=== PATIENT | male | born 1975 | race Caucasian/White ===

== ENCOUNTER 2018-04-22 10:06 | Emergency (ER) | payer OTHER, MEDICAID, SELFPAY ==
[2018-04-22 10:14] VITALS: BP 134/68; PULSE 78; RESP 18; TEMP 37.2; O2SAT 96; BMI 38.6
--- NOTE | 2018-04-22 10:23 | DI.RAD.S_ITS ---
PROCEDURE: XR CHEST 1V INDICATIONS: chest pain TECHNIQUE: One view of the chest was acquired. COMPARISON: [facility], , CHEST 1 VIEW, 09/14/2017, 10:48. FINDINGS: Surgical changes and devices: None. Lungs and pleura: No pleural effusions or pneumothorax. Mild increased pulmonary vascularity. Mediastinum: Mediastinal contours appear normal. Heart size is mildly enlarged. Bones and chest wall: No suspicious bony lesions. Overlying soft tissues appear unremarkable. IMPRESSION: Cardiomegaly with increased vascularity suggestive of edema. Dictated by: Mey Peralta M.D. on 04/22/2018 at 9:50 Approved by: Mey Peralta M.D. on 04/22/2018 at 9:51
--- NOTE | 2018-04-22 10:26 | PC.NURSE ---
pt c/o chest pain started yesterday morning when he woke up. progressively got worse throughout the day. today increased weakness, and still having chest pain. has history of mi in 2006, also has HTN.
[2018-04-22 10:30] LABS: Add Manual Diff / Slide Review NO; Basophils Percent Auto 0.3 % (0-2); Eosinophils Percent Auto 2.9 % (2-4); Hematocrit 40.6 % (41-53); Hemoglobin 14.2 g/dL (13.5-17.5); Lymphocytes Percent Auto 11.8 % (25-40); Mean Corpuscular Hemoglobin 29.8 PG (26-34); Monocytes Percent Auto 5.9 % (3-14); Neutrophils Absolute Auto 8400 /uL (3000-5900); Neutrophils Percent Auto 79.1 % (50-75); Platelet Count 153 X10^3/uL (150-400); Red Blood Cell Count 4.78 X10^6/uL (4.5-5.9); Red Cell Distribution Width 13.4 % (11.6-14.8); White Blood Cell Count 10.6 X10^3/uL (4.5-11.0)
[2018-04-22 10:35] LABS: INR 1.1 (0.9-1.3); Prothrombin Time 12.3 SECONDS (10.1-12.7)
--- NOTE | 2018-04-22 10:36 | ED_ITS ---
HPI - Chest Pain General Chief Complaint: Chest Pain Stated Complaint: sleep apnea/chest pain Time Seen by Provider: 04/22/18 10:18 Source: patient Mode of arrival: ambulatory Limitations: no limitations History of Present Illness HPI narrative: Patient is a 43-year-old male who presents with chest pain. He is been having some nasal congestion and sinus problems for about 1-2 months. His primary finally put him on some antibiotics but he still feels quite congested. He is unable to wear his nasal CPAP at night because he is so congested. This morning he woke up use quite short of breath he has been fatigued and he had some chest pain. It has gotten better since he has been awake. He still says it is about L1 but overall improving. It is nonradiating does not get any better or worse with exertion. He has history of CAD and [place] MD complaint: chest pain Related Data Home Medications Medication Instructions Recorded Confirmed metoprolol tartrate 50 mg PO BID #0 03/21/17 04/22/18 aspirin 325 mg PO DAILY 04/22/18 04/22/18 Allergies Allergy/AdvReac Type Severity Reaction Status Date / Time Sulfa (Sulfonamide Allergy Intermediate RESPIRATORY Verified 04/22/18 10:13 Antibiotics) PROBLEMS Review of Systems Review of Systems GENERAL: Denies chills, fatigue, malaise, fever, sweats, travel HEENT: See HPI RESPIRATORY: + shortness of breath Denies dyspnea, cough, wheezing, hemoptysis, sputum. CARDIOVASCULAR: See HPI GASTROINTESTINAL: Denies nausea, vomiting, abdominal pain, diarrhea, constipation, melena. : Denies dysuria, frequency, incontinence, hematuria, urinary retention, flank pain. MUSCULOSKELETAL: Denies weakness, joint pain, or bony pain SKIN: No rash, no erythema, no pruritus NEUROLOGIC: Denies weakness, dizziness, headache, numbness, change in speech, confusion PSYCHIATRIC: No concerning psychosocial issues. 12 point review of systems is negative except for those stated above and HPI PFSH Medical History Coronary artery disease (Acute) Hypertension (Acute) Kidney stones (Acute) Obstructive sleep apnea (Acute) Exam Initial Vital Signs Initial Vital Signs: Vital Signs Temperature 98.9 F 04/22/18 10:14 Pulse Rate 78 04/22/18 10:14 Respiratory Rate 18 04/22/18 10:14 Blood Pressure 134/68 04/22/18 10:14 Pulse Oximetry 96 04/22/18 10:14 GENERAL: Well-appearing, well-nourished and in no acute distress. HEENT: Head atraumatic,EOMI, pupils reactive, face symmetric, CARDIOVASCULAR: Regular rate and rhythm without murmurs, rubs or gallops. RESPIRATORY: Breath sounds equal bilaterally, no wheezes rales or rhonchi. ABDOMEN: Soft, nontender. Normoactive bowel sounds all 4 quadrants. No guarding or rebound. EXTREMITIES: Normal range of motion, no clubbing or edema. Neurovascularly intact NEUROLOGICAL: Alert and oriented x4.Normal gait and speech. Cranial nerves II through XII grossly intact. SKIN: Warm, dry, no laceration, no petechiae, no rashes or lesions. Course Orders Ordered: ED Orders 04/22/18 10:20 Complete Blood Count AUTO DIFF Stat Comprehensive Metabolic Panel Stat Lipase Stat Partial Thromboplastin Time Stat Prothrombin Time INR Stat Troponin & CK Cardiac Panel Stat 04/22/18 10:23 XR chest 1V Stat EKG-12 Lead Stat 04/22/18 12:12 Troponin I Stat Vital Signs - 8 hr 04/22/18 10:14 04/22/18 11:00 04/22/18 11:30 Temperature 98.9 F Pulse Rate 78 72 67 Respiratory Rate 18 18 13 Blood Pressure 134/68 Blood Pressure [Left Arm] 119/80 130/78 Pulse Oximetry 96 96 97 04/22/18 12:00 04/22/18 12:30 04/22/18 13:19 Temperature Pulse Rate 78 62 64 Respiratory Rate 19 14 16 Blood Pressure 131/73 Blood Pressure [Left Arm] 131/73 117/58 L Pulse Oximetry 96 97 96 MDM - Chest Pain Lab Data Attestation: I reviewed the patient's lab results. Result diagrams: 04/22/18 10:20 04/22/18 10:20 Lab Results 04/22/18 04/22/18 04/22/18 Range/Units 10:20 10:20 10:20 WBC 10.6 (4.5-11.0) X10^3/uL RBC 4.78 (4.5-5.9) X10^6/uL Hgb 14.2 (13.5-17.5) g/dL Hct 40.6 L (41-53) % MCV 85.0 (80-100) fL MCH 29.8 (26-34) PG MCHC 35.0 (30-36) % RDW 13.4 (11.6-14.8) % Plt Count 153 (150-400) X10^3/uL Neut % (Auto) 79.1 H (50-75) % Lymph % (Auto) 11.8 L (25-40) % Parker % (Auto) 5.9 (3-14) % Eos % (Auto) 2.9 (2-4) % Baso % (Auto) 0.3 (0-2) % Neut # (Auto) 8400 H (7121-6676) /uL PT 12.3 (10.1-12.7) SECONDS INR 1.1 (0.9-1.3) APTT 30 (26.4-36.2) SECONDS Sodium 140 (137-145) mmol/L Potassium 4.3 (3.4-5.1) mmol/L Chloride 103 (98-107) mmol/L Carbon Dioxide 28 (22-32) mmol/L BUN 19 (9-20) mg/dL Creatinine 0.80 (0.66-1.25) mg/dL Estimated GFR > 60.0 (>60) mL/min BUN/Creatinine Ratio 23.8 H (6-22) Glucose 141 H (70-100) mg/dL Calcium 9.2 (8.4-10.2) mg/dL Total Bilirubin 0.8 (0.2-1.3) mg/dL AST 25 (17-59) IU/L ALT 30 (21-72) IU/L Alkaline Phosphatase 63 (38-126) U/L Total Creatine Kinase 85 (55-170) U/L Troponin I < 0.012 (0.01-0.034) ng/mL Total Protein 7.1 (6.3-8.2) g/dL Albumin 4.3 (3.5-5.0) g/dL Globulin 2.8 (1.7-4.1) g/dL Albumin/Globulin Ratio 1.5 (1.0-2.8) Lipase 335 H (23-300) U/L 04/22/18 Range/Units 12:12 WBC (4.5-11.0) X10^3/uL RBC (4.5-5.9) X10^6/uL Hgb (13.5-17.5) g/dL Hct (41-53) % MCV (80-100) fL MCH (26-34) PG MCHC (30-36) % RDW (11.6-14.8) % Plt Count (150-400) X10^3/uL Neut % (Auto) (50-75) % Lymph % (Auto) (25-40) % Parker % (Auto) (3-14) % Eos % (Auto) (2-4) % Baso % (Auto) (0-2) % Neut # (Auto) (8433-5107) /uL PT (10.1-12.7) SECONDS INR (0.9-1.3) APTT (26.4-36.2) SECONDS Sodium (137-145) mmol/L Potassium (3.4-5.1) mmol/L Chloride (98-107) mmol/L Carbon Dioxide (22-32) mmol/L BUN (9-20) mg/dL Creatinine (0.66-1.25) mg/dL Estimated GFR (>60) mL/min BUN/Creatinine Ratio (6-22) Glucose (70-100) mg/dL Calcium (8.4-10.2) mg/dL Total Bilirubin (0.2-1.3) mg/dL AST (17-59) IU/L ALT (21-72) IU/L Alkaline Phosphatase (38-126) U/L Total Creatine Kinase (55-170) U/L Troponin I < 0.012 (0.01-0.034) ng/mL Total Protein (6.3-8.2) g/dL Albumin (3.5-5.0) g/dL Globulin (1.7-4.1) g/dL Albumin/Globulin Ratio (1.0-2.8) Lipase (23-300) U/L Imaging Data Chest x-ray: Attestation: I personally reviewed and interpreted this imaging study as follows: Radiologist's impression: PROCEDURE: XR CHEST 1V INDICATIONS: chest pain TECHNIQUE: One view of the chest was acquired. COMPARISON: [facility], CHEST 1 VIEW, 09/14/2017, 10:48. FINDINGS: Surgical changes and devices: None. Lungs and pleura: No pleural effusions or pneumothorax. Mild increased pulmonary vascularity. Mediastinum: Mediastinal contours appear normal. Heart size is mildly enlarged. Bones and chest wall: No suspicious bony lesions. Overlying soft tissues appear unremarkable. IMPRESSION: Cardiomegaly with increased vascularity suggestive of edema. Dictated by: Mey Peralta M.D. on 04/22/2018 at 9:50 ECG Data Attestation: I personally reviewed and interpreted this ECG as follows: Prior ECG tracings: available for review Interpretation: Normal sinus rhythm rate [address] changes similar to previous EKG no T-wave inversion MDM Narrative Medical decision making narrative: Patient has 2-troponins. He does have a history of coronary artery disease however I feel like this is a combination of his current sinus infection and not wearing his CPAP. EKG is similar to prior he remains chest pain-free in the ED for the last 3 hr. Recommend he follow up with his primary care physician. Discharge Plan Departure Patient Disposition: Home Clinical Impression: Atypical chest pain Discharge Date/Time: 04/22/18 13:24 Interventions: ED Discharge Assessment Last Done: 04/22/18 13:19 Instructions: DI for Atypical Chest Pain Activity Restrictions/Additional Instructions: *You have been diagnosed with atypical chest pain *What to do: Wear CPAP, rest *Continue to take medications as directed *Follow up with your primary care provider in 2-3 days *Return to ER if you should have new or worsening chest pain, shortness of breath or any new, worsening or concerning symptoms Prescriptions: No Action metoprolol tartrate 50 MG tablet 50 mg PO BID Qty: 0 RF: 0 aspirin 325 mg Tablet 325 mg PO DAILY RF: 0 Stand Alone Forms: Work/School Restrictions
[2018-04-22 10:38] LABS: PTT Partial Thromboplastin Tim 30 SECONDS (26.4-36.2)
[2018-04-22 10:40] LABS: Alanine Aminotransferase 30 IU/L (21-72); Albumin 4.3 g/dL (3.5-5.0); Albumin Globulin Ratio 1.5 (1.0-2.8); Alkaline Phosphatase 63 U/L (38-126); Aspartate Aminotransferase 25 IU/L (17-59); BUN Creatinine Ratio 23.8 (6-22); Bilirubin Total 0.8 mg/dL (0.2-1.3); Blood Urea Nitrogen 19 mg/dL (9-20); Calcium 9.2 mg/dL (8.4-10.2); Carbon Dioxide 28 mmol/L (22-32); Chloride 103 mmol/L (98-107); Creatine Kinase 85 U/L (55-170); Estimated Glomerular Filt Rate > 60.0 mL/min (>60); Globulin 2.8 g/dL (1.7-4.1); Glucose 141 mg/dL (70-100); HEMOLYSIS < 15 (0-50); Lipase 335 U/L (23-300); Potassium 4.3 mmol/L (3.4-5.1); Sodium 140 mmol/L (137-145); Total Protein 7.1 g/dL (6.3-8.2)
[2018-04-22 10:54] LABS: Troponin I < 0.012 ng/mL (0.01-0.034)
[2018-04-22 11:00] VITALS: BP 119/80; PULSE 72; RESP 18; O2SAT 96
[2018-04-22 11:30] VITALS: BP 130/78; PULSE 67; RESP 13; O2SAT 97
[2018-04-22 12:00] VITALS: BP 131/73; PULSE 78; RESP 19; O2SAT 96
[2018-04-22 12:30] VITALS: BP 117/58; PULSE 62; RESP 14; O2SAT 97
[2018-04-22 12:52] LABS: Troponin I < 0.012 ng/mL (0.01-0.034)
[2018-04-22 13:19] VITALS: BP 131/73; PULSE 64; RESP 16; O2SAT 96
== END 2018-04-22 13:24 | disposition home or self-care (01) ==
PROVIDERS: Emergency Provider Emergency Medicine
DX: R07.89 Other chest pain (principal)
CPT/HCPCS: 36415; 36591; 71045; 80053; 82550; 82553; 83690; 84484; 85025; 85610; 85730; 93005; 99283; 99285

== ENCOUNTER → 2018-06-24 10:16 | Outpatient (CLI) | payer OTHER, SELFPAY ==
--- NOTE | 2018-06-24 | DI.CT.S_ITS ---
PROCEDURE: CT SINUS SCREEN WO CON INDICATIONS: CHRONIC SINUSITIS TECHNIQUE: Noncontrast 3.0 mm axial images acquired from the frontal sinuses to the mid-sella, with coronal and sagittal reformats. For radiation dose reduction, the following was used: automated exposure control, adjustment of mA and/or kV according to patient size. COMPARISON: None. FINDINGS: Image quality: Excellent. Sinuses: Prominent left maxillary sinus mucous retention cyst versus polyp is present. There is minimal bilateral maxillary as well as scattered ethmoid and frontal sinus mucosal thickening. 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 Ostiomeatal Complexes: Ostiomeatal complexes are patent. There is minimal narrowing on the left secondary mucosal thickening. No Elliot cells. Miscellaneous: Visualized intra-orbital contents are normal. No chyna bullosa or paradoxical turbinate curvature. No nasal septal deviation. IMPRESSION: 1. Prominent retention cyst versus polyp is present in the left maxillary sinus. Otherwise, minimal scattered mucosal thickening. 2. Minimal narrowing of the left ostiomeatal complex as above. Dictated by: Mey Peralta M.D. on 06/24/2018 at 10:57 Approved by: Mey Peralta M.D. on 06/24/2018 at 11:06
== END ==
PROVIDERS: PCP Family Medicine; Visit Provider Otolaryngology
DX: J32.8 Other chronic sinusitis (principal)
CPT/HCPCS: 70486

== ENCOUNTER 2018-10-02 20:37 | Emergency (ER) | payer OTHER, MEDICAID, SELFPAY ==
[2018-10-02 20:45] VITALS: BP 140/80; PULSE 78; RESP 16; TEMP 36.9; O2SAT 96; BMI 42.4
--- NOTE | 2018-10-02 20:50 | ED.EAR ---
HPI - Ear Problem <MAYRA Kaur - Last Filed: 10/02/18 21:30> General Chief complaint: Ear Stated complaint: states infection of ears with discharge Time Seen by Provider: 10/02/18 20:39 Source: patient Mode of arrival: ambulatory Limitations: no limitations History of Present Illness HPI Narrative: 43-year-old male with history of hypertension and is a nonsmoker here for complaint of pain into his left ear. He reports that he has had hit a tympanic tube placed to his left ear within the last week to 2 to help relieve pressure. He has had pain into his left sinus area over the past 6 months after he had gotten hit there by a piece of metal 6 months ago. The tympanic tube was placed in there to help relieve some of his symptoms. He reports he has had increased pain into his left ear over the past few days and he has had drainage and bleeding from that ear as well. He was prescribed some antibiotic drops that the patient does not know the names to use he states that he has a hard time getting the drops to get past the tube and is very painful when he uses the drops any feels that the eustachian tube any feels that the tympanic tube is clogged. he denies any fevers a however he has had chills over the past couple of days. Positive p.o. intake per no nausea vomiting. MD Complaint: ear pain Related Data Home Medications Medication Instructions Recorded Confirmed metoprolol tartrate 50 mg PO BID #0 03/21/17 04/22/18 aspirin 325 mg PO DAILY 04/22/18 04/22/18 nitroglycerin 0.4 mg sublingual 0.4 mg SL Q5-15M PRN 05/23/18 05/23/18 tablet sildenafil (antihypertensive) PO 05/23/18 05/23/18 Previous Rx's Medication Instructions Recorded amoxicillin-pot clavulanate 1 tab PO BID #13 tab 10/02/18 hydrocodone-acetaminophen [Romney] 1 tab PO Q6H PRN #6 tab 10/02/18 prednisone 40 mg PO BID #6 tab 10/02/18 Allergies Allergy/AdvReac Type Severity Reaction Status Date / Time Sulfa (Sulfonamide Allergy Intermediate RESPIRATORY Verified 05/23/18 12:14 Antibiotics) PROBLEMS Review of Systems <MAYRA Kaur - Last Filed: 10/02/18 21:30> Constitutional Reports chills, Denies fever(s), Denies lethargy and Denies weakness Eyes Denies change in vision, Denies eye discharge, Denies irritation and Denies loss of vision ENT Comments: Left ear pain and drainage Cardiovascular Denies chest pain, Denies irregular heart rhythm, Denies lightheadedness, Denies palpitations, Denies dyspnea, Denies dyspnea on exertion and Denies orthopnea Respiratory Denies cough, Denies dyspnea, Denies dyspnea on exertion and Denies wheezing Musculoskeletal Denies back pain, Denies muscle weakness, Denies numbness and Denies tingling Neurologic Denies loss of vision, Denies numbness, Denies tingling and Denies weakness Endocrine Denies palpitations Allergic/Immunologic Denies wheezing PFSH <MAYRA Kaur - Last Filed: 10/02/18 21:30> Medical History Coronary artery disease (Acute) Hypertension (Acute) Kidney stones (Acute) Obstructive sleep apnea (Acute) Social History Smoking Status: Never smoker alcohol intake: current (occasionally) Social History Smoking Status: Never smoker alcohol intake: current (occasionally) Exam <MAYRA Kaur - Last Filed: 10/02/18 21:30> Initial Vital Signs Initial Vital Signs: Vital Signs Temperature 98.5 F 10/02/18 20:45 Pulse Rate 78 10/02/18 20:45 Respiratory Rate 16 10/02/18 20:45 Blood Pressure 140/80 10/02/18 20:45 Pulse Oximetry 96 10/02/18 20:45 Const General: cooperative and well developed Nutritional Appearance: well nourished Orientation: alert, awake, oriented x3 and not confused HENPR Head: atraumatic Ears: external ears normal, TM normal on the right, left TM abnormal ( left TM opaque and darkened. tympanic tube is in place) and other Face and sinus: no sinus tenderness Mouth: oral mucosae normal and moist mucous membranes Throat: posterior oropharynx normal Eyes Conjunctivae: conjunctivae normal Sclera: sclerae normal Pupils: PERRL EOM: EOM intact bilaterally Chest Chest: normal inspection of the chest Resp Effort & Inspection: normal respiratory effort, able to speak in complete sentences, no respiratory distress and no use of accessory muscles Auscultation: clear to auscultation bilaterally, no rales, no rhonchi and no wheezes Cardio Rate: regular rate Rhythm: regular rhythm Heart Sounds: no click, no gallops, no murmurs and no rubs Skin General: no rashes or lesions noted, No jaundice and No petechiae Neuro General: alert, oriented x3, gait normal and no focal motor deficits Speech: speech normal <Zander Chou DO - Last Filed: 10/02/18 22:01> Initial Vital Signs Initial Vital Signs: Vital Signs Temperature 98.5 F 10/02/18 20:45 Pulse Rate 78 10/02/18 20:45 Respiratory Rate 16 10/02/18 20:45 Blood Pressure 140/80 10/02/18 20:45 Pulse Oximetry 96 10/02/18 20:45 Course <MAYRA Kaur - Last Filed: 10/02/18 21:30> Orders Ordered: Discontinued Medications Amoxicillin/Clavulanate Potassium (Augmentin 875-125 Mg) 1 tab PO NOW ONE Stop: 10/02/18 21:15 Last Admin: 10/02/18 21:23 Dose: 1 tab Ketorolac Tromethamine (Toradol) 60 mg IM NOW ONE Stop: 10/02/18 21:15 Last Admin: 10/02/18 21:23 Dose: 60 mg Prednisone (Deltasone) 40 mg PO NOW ONE Stop: 10/02/18 21:15 Last Admin: 10/02/18 21:23 Dose: 40 mg Vital Signs - 8 hr 10/02/18 20:45 Temperature 98.5 F Pulse Rate 78 Respiratory Rate 16 Blood Pressure 140/80 Pulse Oximetry 96 <Zander Chou DO - Last Filed: 10/02/18 22:01> Orders Ordered: Discontinued Medications Amoxicillin/Clavulanate Potassium (Augmentin 875-125 Mg) 1 tab PO NOW ONE Stop: 10/02/18 21:15 Last Admin: 10/02/18 21:23 Dose: 1 tab Ketorolac Tromethamine (Toradol) 60 mg IM NOW ONE Stop: 10/02/18 21:15 Last Admin: 10/02/18 21:23 Dose: 60 mg Prednisone (Deltasone) 40 mg PO NOW ONE Stop: 10/02/18 21:15 Last Admin: 10/02/18 21:23 Dose: 40 mg Vital Signs - 8 hr 10/02/18 20:45 Temperature 98.5 F Pulse Rate 78 Respiratory Rate 16 Blood Pressure 140/80 Pulse Oximetry 96 Medical Decision Making <Jonas SantosMAYRA - Last Filed: 10/02/18 21:30> MDM Narrative Medical decision making narrative: left tympanic membrane appears dark and an opaque with tympanic tube in place although partially dislodged. Small amount of blood is seen into the tympanic membrane area suspect infection and pressure to the inner ear. Discussed case with Dr. Martínez ENT who recommends antibiotics and steroids with follow-up tomorrow with ENT office. He was given Augmentin in the emergency room with prescription to fill tomorrow for subsequent dosing. He was also given prednisone 40 and also prescription for subsequent doses for total of 4 days of steroids. He will call ENT office tomorrow morning to schedule follow-up appointment for re-evaluation. [id number] ibuprofen as needed for any discomfort. small amount of Romney is prescribed for breakthrough pain. No driving while on the Romney. Return emergency room for any worsening symptoms. Discharge Plan Departure Patient Disposition: Home Clinical Impression: Left acute otitis media Discharge Date/Time: 10/02/18 21:34 Interventions: ED Discharge Assessment Last Done: 10/02/18 21:34 Instructions: Middle Ear Infection Activity Restrictions/Additional Instructions: signs and symptoms presents as infection to the middle ear. You are placed on an antibiotic called Augmentin use as directed. First dose was given in the emergency room this evening. Prednisone is also prescribed which is an anti-inflammatory to for anti inflammatory affects use as directed use [id number] ibuprofen as needed for any discomfort. Small amount of Romney is provided for breakthrough pain. Call ENT office tomorrow at number provided to schedule follow-up appointment tomorrow for re-evaluation. For any worsening symptoms return to the emergency room. Prescriptions: New hydrocodone-acetaminophen [Romney] 5-325 mg tablet 1 tab PO Q6H PRN (Reason: pain) Qty: 6 RF: 0 prednisone 20 mg tablet 40 mg PO BID Qty: 6 RF: 0 amoxicillin-pot clavulanate 875-125 mg tablet 1 tab PO BID Qty: 13 RF: 0 No Action sildenafil (antihypertensive) PO RF: 0 nitroglycerin 0.4 mg tablet, sublingual 0.4 mg SL Q5-15M PRNRF: 0 metoprolol tartrate 50 MG tablet 50 mg PO BID Qty: 0 RF: 0 aspirin 325 mg Tablet 325 mg PO DAILY RF: 0 Referrals: Mike Valencia MD [Physician] - <Zander Chou DO - Last Filed: 10/02/18 22:01> Cosign ED Attending Romy Attestation: I was immediately available in the department for consultation. Documentation has been reviewed. I agree with assessment and plan.
[2018-10-02] MEDS: AMOXICILLIN/CLAV 875/125 MG 1 TAB PO (21:23)
[2018-10-02] MEDS: predniSONE 20 MG TABLET 40 MG PO (21:23)
[2018-10-02] MEDS: KETOROLAC 60 MG/2 ML VIAL IM (21:23)
--- NOTE | 2018-10-02 21:24 | ED_ITS ---
HPI - Ear Problem <MAYRA Kaur - Last Filed: 10/02/18 21:30> General Chief complaint: Ear Stated complaint: states infection of ears with discharge Time Seen by Provider: 10/02/18 20:39 Source: patient Mode of arrival: ambulatory Limitations: no limitations History of Present Illness HPI Narrative: 43-year-old male with history of hypertension and is a nonsmoker here for complaint of pain into his left ear. He reports that he has had hit a tympanic tube placed to his left ear within the last week to 2 to help relieve pressure. He has had pain into his left sinus area over the past 6 months after he had gotten hit there by a piece of metal 6 months ago. The tympanic tube was placed in there to help relieve some of his symptoms. He reports he has had increased pain into his left ear over the past few days and he has had drainage and bleeding from that ear as well. He was prescribed some antibiotic drops that the patient does not know the names to use he states that he has a hard time getting the drops to get past the tube and is very painful when he uses the drops any feels that the eustachian tube any feels that the tympanic tube is clogged. he denies any fevers a however he has had chills over the past couple of days. Positive p.o. intake per no nausea vomiting. MD Complaint: ear pain Related Data Home Medications Medication Instructions Recorded Confirmed metoprolol tartrate 50 mg PO BID #0 03/21/17 04/22/18 aspirin 325 mg PO DAILY 04/22/18 04/22/18 nitroglycerin 0.4 mg sublingual 0.4 mg SL Q5-15M PRN 05/23/18 05/23/18 tablet sildenafil (antihypertensive) PO 05/23/18 05/23/18 Previous Rx's Medication Instructions Recorded amoxicillin-pot clavulanate 1 tab PO BID #13 tab 10/02/18 hydrocodone-acetaminophen [[place]] 1 tab PO Q6H PRN #6 tab 10/02/18 prednisone 40 mg PO BID #6 tab 10/02/18 Allergies Allergy/AdvReac Type Severity Reaction Status Date / Time Sulfa (Sulfonamide Allergy Intermediate RESPIRATORY Verified 05/23/18 12:14 Antibiotics) PROBLEMS Review of Systems <MAYRA Kaur - Last Filed: 10/02/18 21:30> Constitutional Reports chills, Denies fever(s), Denies lethargy and Denies weakness Eyes Denies change in vision, Denies eye discharge, Denies irritation and Denies loss of vision ENT Comments: Left ear pain and drainage Cardiovascular Denies chest pain, Denies irregular heart rhythm, Denies lightheadedness, Denies palpitations, Denies dyspnea, Denies dyspnea on exertion and Denies orthopnea Respiratory Denies cough, Denies dyspnea, Denies dyspnea on exertion and Denies wheezing Musculoskeletal Denies back pain, Denies muscle weakness, Denies numbness and Denies tingling Neurologic Denies loss of vision, Denies numbness, Denies tingling and Denies weakness Endocrine Denies palpitations Allergic/Immunologic Denies wheezing PFSH <MAYRA Kaur - Last Filed: 10/02/18 21:30> Medical History Coronary artery disease (Acute) Hypertension (Acute) Kidney stones (Acute) Obstructive sleep apnea (Acute) Social History Smoking Status: Never smoker alcohol intake: current (occasionally) Social History Smoking Status: Never smoker alcohol intake: current (occasionally) Exam <MAYRA Kaur - Last Filed: 10/02/18 21:30> Initial Vital Signs Initial Vital Signs: Vital Signs Temperature 98.5 F 10/02/18 20:45 Pulse Rate 78 10/02/18 20:45 Respiratory Rate 16 10/02/18 20:45 Blood Pressure 140/80 10/02/18 20:45 Pulse Oximetry 96 10/02/18 20:45 Const General: cooperative and well developed Nutritional Appearance: well nourished Orientation: alert, awake, oriented x3 and not confused HENUT Head: atraumatic Ears: external ears normal, TM normal on the right, left TM abnormal ( left TM opaque and darkened. tympanic tube is in place) and other Face and sinus: no sinus tenderness Mouth: oral mucosae normal and moist mucous membranes Throat: posterior oropharynx normal Eyes Conjunctivae: conjunctivae normal Sclera: sclerae normal Pupils: PERRL EOM: EOM intact bilaterally Chest Chest: normal inspection of the chest Resp Effort & Inspection: normal respiratory effort, able to speak in complete sentences, no respiratory distress and no use of accessory muscles Auscultation: clear to auscultation bilaterally, no rales, no rhonchi and no wheezes Cardio Rate: regular rate Rhythm: regular rhythm Heart Sounds: no click, no gallops, no murmurs and no rubs Skin General: no rashes or lesions noted, No jaundice and No petechiae Neuro General: alert, oriented x3, gait normal and no focal motor deficits Speech: speech normal <Zander Chou DO - Last Filed: 10/02/18 22:01> Initial Vital Signs Initial Vital Signs: Vital Signs Temperature 98.5 F 10/02/18 20:45 Pulse Rate 78 10/02/18 20:45 Respiratory Rate 16 10/02/18 20:45 Blood Pressure 140/80 10/02/18 20:45 Pulse Oximetry 96 10/02/18 20:45 Course <MAYRA Kaur - Last Filed: 10/02/18 21:30> Orders Ordered: Discontinued Medications Amoxicillin/Clavulanate Potassium (Augmentin 875-125 Mg) 1 tab PO NOW ONE Stop: 10/02/18 21:15 Last Admin: 10/02/18 21:23 Dose: 1 tab Ketorolac Tromethamine (Toradol) 60 mg IM NOW ONE Stop: 10/02/18 21:15 Last Admin: 10/02/18 21:23 Dose: 60 mg Prednisone (Deltasone) 40 mg PO NOW ONE Stop: 10/02/18 21:15 Last Admin: 10/02/18 21:23 Dose: 40 mg Vital Signs - 8 hr 10/02/18 20:45 Temperature 98.5 F Pulse Rate 78 Respiratory Rate 16 Blood Pressure 140/80 Pulse Oximetry 96 <Zander Chou DO - Last Filed: 10/02/18 22:01> Orders Ordered: Discontinued Medications Amoxicillin/Clavulanate Potassium (Augmentin 875-125 Mg) 1 tab PO NOW ONE Stop: 10/02/18 21:15 Last Admin: 10/02/18 21:23 Dose: 1 tab Ketorolac Tromethamine (Toradol) 60 mg IM NOW ONE Stop: 10/02/18 21:15 Last Admin: 10/02/18 21:23 Dose: 60 mg Prednisone (Deltasone) 40 mg PO NOW ONE Stop: 10/02/18 21:15 Last Admin: 10/02/18 21:23 Dose: 40 mg Vital Signs - 8 hr 10/02/18 20:45 Temperature 98.5 F Pulse Rate 78 Respiratory Rate 16 Blood Pressure 140/80 Pulse Oximetry 96 Medical Decision Making <Jonas SantosMAYRA - Last Filed: 10/02/18 21:30> MDM Narrative Medical decision making narrative: left tympanic membrane appears dark and an opaque with tympanic tube in place although partially dislodged. Small amount of blood is seen into the tympanic membrane area suspect infection and pressure to the inner ear. Discussed case with Dr. Martínez ENT who recommends antibiotics and steroids with follow-up tomorrow with ENT office. He was given Augmentin in the emergency room with prescription to fill tomorrow for subsequent dosing. He was also given prednisone 40 and also prescription for subsequent doses for total of 4 days of steroids. He will call ENT office tomorrow morning to schedule follow-up appointment for re-evaluation. [id number] ibuprofen as needed for any discomfort. small amount of [place] is prescribed for breakthrough pain. No driving while on the [place]. Return emergency room for any worsening symptoms. Discharge Plan Departure Patient Disposition: Home Clinical Impression: Left acute otitis media Discharge Date/Time: 10/02/18 21:34 Interventions: ED Discharge Assessment Last Done: 10/02/18 21:34 Instructions: Middle Ear Infection Activity Restrictions/Additional Instructions: signs and symptoms presents as infection to the middle ear. You are placed on an antibiotic called Augmentin use as directed. First dose was given in the emergency room this evening. Prednisone is also prescribed which is an anti- inflammatory to for anti inflammatory affects use as directed use [id number] ibuprofen as needed for any discomfort. Small amount of [place] is provided for breakthrough pain. Call ENT office tomorrow at number provided to schedule follow-up appointment tomorrow for re-evaluation. For any worsening symptoms return to the emergency room. Prescriptions: New hydrocodone-acetaminophen [[place]] 5-325 mg tablet 1 tab PO Q6H PRN (Reason: pain) Qty: 6 RF: 0 prednisone 20 mg tablet 40 mg PO BID Qty: 6 RF: 0 amoxicillin-pot clavulanate 875-125 mg tablet 1 tab PO BID Qty: 13 RF: 0 No Action sildenafil (antihypertensive) PO RF: 0 nitroglycerin 0.4 mg tablet, sublingual 0.4 mg SL Q5-15M PRNRF: 0 metoprolol tartrate 50 MG tablet 50 mg PO BID Qty: 0 RF: 0 aspirin 325 mg Tablet 325 mg PO DAILY RF: 0 Referrals: Mike Valencia MD [Physician] - <Zander Chou DO - Last Filed: 10/02/18 22:01> Cosign ED Attending Romy Attestation: I was immediately available in the department for consultation. Documentation has been reviewed. I agree with assessment and plan.
== END 2018-10-02 21:34 | disposition home or self-care (01) ==
PROVIDERS: Emergency Provider Nurse Practitioner Family
DX: H66.92 Otitis media, unspecified, left ear (principal)
CPT/HCPCS: 96372; 99282; 99283; J1885

== ENCOUNTER → 2018-10-28 11:39 | Outpatient (CLI) | payer OTHER, MEDICAID, SELFPAY ==
--- NOTE | 2018-10-28 | DI.CT.S_ITS ---
PROCEDURE: CT ABDOMEN PELVIS WO/W CON INDICATIONS: Other microscopic hematuria TECHNIQUE: Optional 5 mm thick noncontrast images acquired from the diaphragm to the symphysis pubis. After the administration of intravenous contrast, 5 mm thick images acquired from the diaphragm to the symphysis pubis after a 10-minute delay. 2 mm thick coronal and sagittal reformats were then performed of the kidneys and ureters. For radiation dose reduction, the following was used: automated exposure control, adjustment of mA and/or kV according to patient size. COMPARISON: None. FINDINGS: Image quality: Excellent. Lung bases: Lung bases are clear. Heart size is normal. Urinary system: Both kidneys are normal in size, without hydronephrosis or nephrolithiasis on pre-contrast images. No perinephric fat stranding. There is normal bilateral renal enhancement. Renal calyces appear normal in morphology when filled with contrast. Opacified portions of both ureters demonstrate normal caliber. Bladder wall thickness is normal. No calcified bladder stones. Other solid organs: Liver is normal in size and enhancement. Gallbladder negative. Biliary system is non dilated. Pancreas enhances normally. Spleen is normal in size and enhancement. No adrenal nodules. Peritoneum and bowel: Bowel loops demonstrate normal wall thickness and caliber. No free fluid or air. Appendix normal Rectum is grossly unremarkable Nodes and vessels: No retroperitoneal or mesenteric adenopathy by size criteria. Aorta and inferior vena cava are normal in size. Abdominal wall: No ventral hernias. Pelvis: No pathologic free pelvic fluid. No inguinal hernias or adenopathy. Bones: No suspicious bony lesions. No vertebral body compression fractures. IMPRESSION: No urolithiasis. No evidence of urinary obstruction. No acute process. Chronic and incidental findings as above. Dictated by: Mike Gibson M.D. on 10/28/2018 at 13:24 Approved by: Mike Gibson M.D. on 10/28/2018 at 13:35
== END ==
PROVIDERS: PCP Family Medicine; Visit Provider Urology
DX: R31.29 Other microscopic hematuria (principal)
CPT/HCPCS: 74178; Q9967

== ENCOUNTER 2018-11-25 18:27 | Emergency (ER) | payer OTHER, MEDICAID, SELFPAY ==
[2018-11-25] VITALS (9 sets, daily range): BP systolic 116–157; BP diastolic 66–90; PULSE 79–93; RESP 10–21; TEMP 36.9; O2SAT 95–100
--- NOTE | 2018-11-25 18:40 | DI.RAD.S_ITS ---
PROCEDURE: XR CHEST 1V INDICATIONS: chest pain TECHNIQUE: One view of the chest was acquired. COMPARISON: [facility], CR, XR CHEST 1V, 04/22/2018, 10:28. FINDINGS: Surgical changes and devices: None. Lungs and pleura: Lungs are clear. No pleural effusions or pneumothorax. Mediastinum: Mediastinal contours appear normal. Heart size is normal. Bones and chest wall: No suspicious bony lesions. Overlying soft tissues appear unremarkable. IMPRESSION: No evidence acute pulmonary process. Dictated by: Deonte Dutta M.D. on 11/25/2018 at 19:24 Approved by: Deonte Dutta M.D. on 11/25/2018 at 19:24
--- NOTE | 2018-11-25 18:52 | ED_ITS ---
HPI - Chest Pain General Chief Complaint: Chest Pain Stated Complaint: CHEST PAIN DIZZY Time Seen by Provider: 11/25/18 18:52 Source: patient Mode of arrival: ambulatory Limitations: no limitations History of Present Illness HPI narrative: Patient is a 43-year-old male here for evaluation of chest pain. He states he was driving to work when he had a onset of chest pain. He states that it does seem to get slightly dizzy. Was having pain when he came in here to the emergency department. States that it started approximately 1 hour prior to arrival. He states that a couple years ago he had a cardiac catheterization performed did not have any stents placed. He states when he arrived at work his supervisor rough end told him to come the emergency department to be seen. He states that his symptoms were not worse with palpation or movement. Related Data Home Medications Medication Instructions Recorded Confirmed metoprolol tartrate 50 mg PO BID #0 03/21/17 11/25/18 aspirin 325 mg PO DAILY 04/22/18 11/25/18 nitroglycerin 0.4 mg sublingual 0.4 mg SL Q5-15M PRN 05/23/18 11/25/18 tablet sildenafil (antihypertensive) 40 mg PO PRN PRN 05/23/18 11/25/18 Allergies Allergy/AdvReac Type Severity Reaction Status Date / Time Sulfa (Sulfonamide Allergy Intermediate RESPIRATORY Verified 05/23/18 12:14 Antibiotics) PROBLEMS Review of Systems Constitutional Denies headache(s) ENT Ears, Nose, Mouth, and Throat: Denies headache(s) Cardiovascular Reports chest pain, Denies rapid heart rate, Denies edema, Reports lightheadedness, Denies palpitations and Denies dyspnea Respiratory Denies dyspnea Gastrointestinal Gastrointestinal: Denies abdominal pain Genitourinary Denies dysuria Musculoskeletal Denies myalgias and Denies arthralgias Integumentary/Breasts Denies rash Neurologic Denies headache(s) Endocrine Denies palpitations Hematologic/Lymphatic Denies easy bleeding and Denies easy bruising Allergic/Immunologic Denies urticaria [facility] Medical History Coronary artery disease (Acute) Hypertension (Acute) Kidney stones (Acute) Obstructive sleep apnea (Acute) Social History Smoking Status: Former smoker alcohol intake: current (occasionally) Exam Initial Vital Signs Initial Vital Signs: Vital Signs Temperature 98.5 F 11/25/18 18:34 Pulse Rate 91 H 11/25/18 18:34 Respiratory Rate 18 11/25/18 18:34 Blood Pressure 157/90 H 11/25/18 18:34 Pulse Oximetry 100 11/25/18 18:34 Const General: cooperative, comfortable, well developed, well groomed and No acute distress Orientation: alert, awake and oriented x3 HENMT Head: normal to inspection and normocephalic Resp Effort & Inspection: normal respiratory effort Auscultation: clear to auscultation bilaterally Cardio Rate: regular rate Rhythm: regular rhythm Pulses: radial pulses present GI Inspection: non-distended Palpation: soft, No firm and No tender Skin Lesions: no lesions Rashes: no rashes Neuro General: alert, awake and oriented x3 Cognition: normal cognition Speech: speech normal Extrem General: normal to inspection and capillary refill normal Psych Appearance: grossly normal and well kempt Scores HEART Score Heart Score history: Slightly Suspicious Heart Score EKG: Normal Heart Score Age: < 45 years old Heart Score risk factors: > 3 risk factors or hx of atherosclerotic disease Heart Score troponin: < or = to normal limit Heart Score Total: 2 Course Orders Ordered: ED Orders 11/25/18 21:50 Troponin I Stat Discontinued Medications Aspirin (Aspirin Chew) 324 mg PO NOW ONE Stop: 11/25/18 19:10 Last Admin: 11/25/18 19:29 Dose: Not Given Nitroglycerin (Nitrostat) 0.4 mg SL [id number] PRN PRN Reason: Chest Pain Last Admin: 11/25/18 19:37 Dose: 0.4 mg Admin: 11/25/18 19:30 Dose: 0.4 mg Vital Signs - 8 hr 11/25/18 20:30 11/25/18 21:00 11/25/18 22:24 Pulse Rate 87 87 79 Respiratory Rate 21 14 19 Blood Pressure Blood Pressure [Right Arm] 116/72 136/83 133/73 Pulse Oximetry 95 98 96 11/25/18 22:48 Pulse Rate 84 Respiratory Rate 18 Blood Pressure 137/89 Blood Pressure [Right Arm] Pulse Oximetry 96 MDM - Chest Pain Lab Data Attestation: I reviewed the patient's lab results. Result diagrams: 11/25/18 18:48 11/25/18 18:48 Lab Results 11/25/18 11/25/18 11/25/18 Range/Units 18:48 18:48 18:48 WBC 7.6 (4.5-11.0) X10^3/uL RBC 5.09 (4.5-5.9) X10^6/uL Hgb 14.5 (13.5-17.5) g/dL Hct 42.9 (41-53) % MCV 84.4 (80-100) fL MCH 28.6 (26-34) PG MCHC 33.9 (30-36) % RDW 13.9 (11.6-14.8) % Plt Count 165 (150-400) X10^3/uL Neut % (Auto) 70.9 (50-75) % Lymph % (Auto) 18.4 L (25-40) % [place] % (Auto) 6.4 (3-14) % Eos % (Auto) 4.0 (2-4) % Baso % (Auto) 0.3 (0-2) % Neut # (Auto) 5400 (4859-3918) /uL Lymph # (Auto) 1400 (1740-7461) /uL [place] # (Auto) 500 (0-900) /uL Eos # (Auto) 300 (0-450) /uL Baso # (Auto) 0 (0-100) /uL PT 12.0 (10.1-12.7) SECONDS INR 1.0 (0.9-1.3) APTT 30 (26.4-36.2) SECONDS D-Dimer (<230) ng/mL Sodium 138 (137-145) mmol/L Potassium 4.1 (3.4-5.1) mmol/L Chloride 103 (98-107) mmol/L Carbon Dioxide 25 (22-32) mmol/L BUN 13 (9-20) mg/dL Creatinine 0.70 (0.66-1.25) mg/dL Estimated GFR > 60.0 (>60) mL/min BUN/Creatinine Ratio 18.6 (6-22) Glucose 102 H (70-100) mg/dL Calcium 9.2 (8.4-10.2) mg/dL Total Bilirubin 0.6 (0.2-1.3) mg/dL AST 64 H (17-59) IU/L ALT 99 H (21-72) IU/L Alkaline Phosphatase 94 (38-126) U/L Total Creatine Kinase 74 (55-170) U/L CK-MB (CK-2) TNP CK-MB (CK-2) Rel Index TNP Troponin I < 0.012 (0.01-0.034) ng/mL Total Protein 7.6 (6.3-8.2) g/dL Albumin 4.6 (3.5-5.0) g/dL Globulin 3.0 (1.7-4.1) g/dL Albumin/Globulin Ratio 1.5 (1.0-2.8) Lipase 78 (23-300) U/L 11/25/18 11/25/18 Range/Units 18:48 21:50 WBC (4.5-11.0) X10^3/uL RBC (4.5-5.9) X10^6/uL Hgb (13.5-17.5) g/dL Hct (41-53) % MCV (80-100) fL MCH (26-34) PG MCHC (30-36) % RDW (11.6-14.8) % Plt Count (150-400) X10^3/uL Neut % (Auto) (50-75) % Lymph % (Auto) (25-40) % [place] % (Auto) (3-14) % Eos % (Auto) (2-4) % Baso % (Auto) (0-2) % Neut # (Auto) (3375-5759) /uL Lymph # (Auto) (8323-2295) /uL [place] # (Auto) (0-900) /uL Eos # (Auto) (0-450) /uL Baso # (Auto) (0-100) /uL PT (10.1-12.7) SECONDS INR (0.9-1.3) APTT (26.4-36.2) SECONDS D-Dimer < 200 (<230) ng/mL Sodium (137-145) mmol/L Potassium (3.4-5.1) mmol/L Chloride (98-107) mmol/L Carbon Dioxide (22-32) mmol/L BUN (9-20) mg/dL Creatinine (0.66-1.25) mg/dL Estimated GFR (>60) mL/min BUN/Creatinine Ratio (6-22) Glucose (70-100) mg/dL Calcium (8.4-10.2) mg/dL Total Bilirubin (0.2-1.3) mg/dL AST (17-59) IU/L ALT (21-72) IU/L Alkaline Phosphatase (38-126) U/L Total Creatine Kinase (55-170) U/L CK-MB (CK-2) CK-MB (CK-2) Rel Index Troponin I < 0.012 (0.01-0.034) ng/mL Total Protein (6.3-8.2) g/dL Albumin (3.5-5.0) g/dL Globulin (1.7-4.1) g/dL Albumin/Globulin Ratio (1.0-2.8) Lipase (23-300) U/L Imaging Data Chest x-ray: Radiologist's impression: [address] [id number] XRay Report Signed Patient: Keyon Das WMR#: [id number] : 1975Acct:[id number] Age/Sex: 43 / MDate of Service: 11/25/18 Loc: ED Accession Number: [id number] Procedure: XR chest 1V Ordering Provider: Mathew Torres D.O. PROCEDURE: XR CHEST 1V INDICATIONS: chest pain TECHNIQUE: One view of the chest was acquired. COMPARISON: [facility], , XR CHEST 1V, 04/22/2018, 10:28. FINDINGS: Surgical changes and devices: None. Lungs and pleura: Lungs are clear. No pleural effusions or pneumothorax. Mediastinum: Mediastinal contours appear normal. Heart size is normal. Bones and chest wall: No suspicious bony lesions. Overlying soft tissues appear unremarkable. IMPRESSION: No evidence acute pulmonary process. Dictated by: Deonte Dutta M.D. on 11/25/2018 at 19:24 Approved by: Deonte Dutta M.D. on 11/25/2018 at 19:24 ECG Data Attestation: I personally reviewed and interpreted this ECG as follows: Prior ECG tracings: not available for review Interpretation: Sinus rhythm Ventricular rate 82 Normal axis Normal QRS Normal QTC No ST T wave changes MDM Narrative Medical decision making narrative: Patient's symptoms did not improve with nitro. He has a unremarkable EKG. Troponins negative x2. Has a heart score 2. Hold on further workup for now. Former patient of return precautions and follow-up instructions. He is going to contact his primary care doctor to discu ss a stress test. He expressed understanding and agreement with plan. Discharge Plan Departure Patient Disposition: Home Clinical Impression: Atypical chest pain Discharge Date/Time: 11/25/18 22:48 Interventions: ED Discharge Assessment Last Done: 11/25/18 22:48 Instructions: DI for Atypical Chest Pain Activity Restrictions/Additional Instructions: I recommend that you continue all of your medications as directed. On Wednesday morning contact your tour guide for a follow-up appointment. Please return to the emergency department for any new or worsening symptoms Prescriptions: No Action sildenafil (antihypertensive) 40 mg PO PRN PRN (Reason: Erectile Dysfunction) RF: 0 nitroglycerin 0.4 mg tablet, sublingual 0.4 mg SL Q5-15M PRN (Reason: Chest Pain) RF: 0 metoprolol tartrate 50 MG tablet 50 mg PO BID Qty: 0 RF: 0 aspirin 325 mg Tablet 325 mg PO DAILY RF: 0 Referrals: Crys Daniel DO [Primary Care Provider] - Stand Alone Forms: Work Release Note
[2018-11-25 19:04] LABS: PTT Partial Thromboplastin Tim 30 SECONDS (26.4-36.2)
[2018-11-25 19:05] LABS: Alanine Aminotransferase 99 IU/L (21-72); Albumin 4.6 g/dL (3.5-5.0); Albumin Globulin Ratio 1.5 (1.0-2.8); Alkaline Phosphatase 94 U/L (38-126); Aspartate Aminotransferase 64 IU/L (17-59); BUN Creatinine Ratio 18.6 (6-22); Bilirubin Total 0.6 mg/dL (0.2-1.3); Blood Urea Nitrogen 13 mg/dL (9-20); Calcium 9.2 mg/dL (8.4-10.2); Carbon Dioxide 25 mmol/L (22-32); Chloride 103 mmol/L (98-107); Creatine Kinase 74 U/L (55-170); Estimated Glomerular Filt Rate > 60.0 mL/min (>60); Glucose 102 mg/dL (70-100); HEMOLYSIS < 15 (0-50); Lipase 78 U/L (23-300); Potassium 4.1 mmol/L (3.4-5.1); Sodium 138 mmol/L (137-145); Total Protein 7.6 g/dL (6.3-8.2)
[2018-11-25 19:17] LABS: Troponin I < 0.012 ng/mL (0.01-0.034)
[2018-11-25] MEDS: NITROGLYCERIN 0.4 MG SL TAB SL ×2 (19:30→19:37)
[2018-11-25 19:33] LABS: Add Manual Diff / Slide Review NO; Basophils Absolute Auto 0 /uL (0-100); Basophils Percent Auto 0.3 % (0-2); Eosinophils Absolute Auto 300 /uL (0-450); Hematocrit 42.9 % (41-53); Hemoglobin 14.5 g/dL (13.5-17.5); Lymphocytes Absolute Auto 1400 /uL (1100-4500); Lymphocytes Percent Auto 18.4 % (25-40); Mean Corpuscular HGB Conc 33.9 % (30-36); Mean Corpuscular Hemoglobin 28.6 PG (26-34); Mean Corpuscular Volume 84.4 fL (80-100); Monocytes Absolute Auto 500 /uL (0-900); Monocytes Percent Auto 6.4 % (3-14); Neutrophils Absolute Auto 5400 /uL (1500-7000); Neutrophils Percent Auto 70.9 % (50-75); Platelet Count 165 X10^3/uL (150-400); Red Blood Cell Count 5.09 X10^6/uL (4.5-5.9); Red Cell Distribution Width 13.9 % (11.6-14.8); White Blood Cell Count 7.6 X10^3/uL (4.5-11.0)
[2018-11-25 19:35] LABS: D Dimer < 200 ng/mL (<230)
[2018-11-25 22:25] LABS: Troponin I < 0.012 ng/mL (0.01-0.034)
== END 2018-11-25 22:48 | disposition home or self-care (01) ==
PROVIDERS: Emergency Provider Emergency Medicine; PCP Family Medicine
DX: R07.89 Other chest pain (principal); R42 Dizziness and giddiness
CPT/HCPCS: 36415; 71045; 80053; 82550; 83690; 84484; 85025; 85379; 85610; 85730; 93005; 93010; 99283; 99285

== ENCOUNTER 2018-12-23 15:30 | Emergency (ER) | payer OTHER, MEDICAID, SELFPAY ==
[2018-12-23 15:34] VITALS: BP 144/82; PULSE 84; RESP 16; TEMP 36.6; O2SAT 96
--- NOTE | 2018-12-23 16:17 | ED.HEATRA ---
HPI - Head Injury <ELZBIETA Prather- - Last Filed: 12/23/18 18:55> General Chief complaint: Head Injury Stated complaint: HIT HEAD Time Seen by Provider: 12/23/18 16:03 Source: patient and family Mode of arrival: ambulatory Limitations: no limitations History of Present Illness HPI Narrative: The patient is a 43-year-old male with history of hypertension who presents with his ?girl with a chief complaint of a fall 3 days ago. He denies midline neck or back pain. He states he is not sure if he lost consciousness or not. He denies any nausea or vomiting. He states continued dizziness, blurry vision. He states he always has dizziness and blurry vision, but now he thinks it is worse than usual. He states he has difficulty reading up close. He denies chest pain or shortness of breath. Denies any numbness or tingling. Denies any incontinence of bowel or bladder. Related Data Home Medications Medication Instructions Recorded Confirmed metoprolol tartrate 50 mg PO BID #0 03/21/17 11/25/18 aspirin 325 mg PO DAILY 04/22/18 11/25/18 nitroglycerin 0.4 mg sublingual 0.4 mg SL Q5-15M PRN 05/23/18 11/25/18 tablet sildenafil (antihypertensive) 40 mg PO PRN PRN 05/23/18 11/25/18 Allergies Allergy/AdvReac Type Severity Reaction Status Date / Time Sulfa (Sulfonamide Allergy Intermediate RESPIRATORY Verified 05/23/18 12:14 Antibiotics) PROBLEMS Review of Systems <KAYLEY Prather - Last Filed: 12/23/18 18:55> Review of Systems GENERAL: Denies chills, fatigue, malaise, fever, sweats. HEENT: Denies sinus pain, ear pain, sore throat, difficulty swallowing, dizziness. RESPIRATORY: Denies dyspnea, cough, wheezing, hemoptysis, sputum. CARDIOVASCULAR: Denies chest pain, palpitations, orthopnea, edema, GASTROINTESTINAL: Denies nausea, vomiting, abdominal pain, diarrhea, constipation, melena. : Denies dysuria, frequency, incontinence, hematuria, urinary retention. MUSCULOSKELETAL: See HPI SKIN: Denies rash, skin lesions, or other NEUROLOGIC: See HPI PSYCHIATRIC: No concerning psychosocial issues. 12 point review of systems is negative except for those stated above PFSH <MARILEE Prather - Last Filed: 12/23/18 18:55> Medical History Coronary artery disease (Acute) Hypertension (Acute) Kidney stones (Acute) Obstructive sleep apnea (Acute) Social History Smoking Status: Former smoker alcohol intake: current (occasionally) Exam <MARILEE Prather - Last Filed: 12/23/18 18:55> Narrative Exam Narrative: GENERAL: This is a well-nourished, well-developed patient, no acute distress HEAD: Atraumatic. Normocephalic. No temporal or scalp tenderness. EYES: Pupils equal round and reactive. Extraocular motions intact. No scleral icterus. No injection or drainage. No nystagmus noted. ENT: Nose without bleeding, purulent drainage or septal hematoma. Throat without erythema, tonsillar hypertrophy or exudate. Uvula midline. Airway patent. NECK: Trachea midline. No JVD or lymphadenopathy. Supple, nontender, no meningeal signs. No pain to C-spine palpation. Pain to palpation of right sternocleidomastoid. CARDIOVASCULAR: Regular rate and rhythm RESPIRATORY: Clear to auscultation. Breath sounds equal bilaterally. No wheezes, rales, or rhonchi. No cough. No increased respiratory effort. GASTROINTESTINAL: Abdomen soft, non-tender, nondistended. No hepato-splenomegaly, or palpable masses. No guarding. EXTREMITIES: No clubbing, cyanosis, or edema. No joint tenderness, effusion, or edema noted. BACK: Nontender without deformity or crepitance. No flank tenderness. No tenderness to palpation of C-spine, T-spine or L-spine. Pain to palpation of right T-spine paraspinal muscles. NEURO: AOx3. No gross cranial nerve deficit. Using all extremities equally. Stable and feet. SKIN: No rash or erythema. Initial Vital Signs Initial Vital Signs: Vital Signs Temperature 97.8 F 12/23/18 15:34 Pulse Rate 84 12/23/18 15:34 Respiratory Rate 16 12/23/18 15:34 Blood Pressure 144/82 H 12/23/18 15:34 Pulse Oximetry 96 12/23/18 15:34 <Linda Elliott DO - Last Filed: 12/24/18 14:33> Initial Vital Signs Initial Vital Signs: Vital Signs Temperature 97.8 F 12/23/18 15:34 Pulse Rate 84 12/23/18 15:34 Respiratory Rate 16 12/23/18 15:34 Blood Pressure 144/82 H 12/23/18 15:34 Pulse Oximetry 96 12/23/18 15:34 Scores <MARILEE Prather - Last Filed: 12/23/18 18:55> Nexus Score for C-Spine Focal Neurologic deficit present: No Midline spinal tenderness present: No Altered level of conciousness present: No Intoxication present: No Distracting Injury Present: No Nexus Criteria for C-spine: 0 Course <MARILEE Prather - Last Filed: 12/23/18 18:55> Orders Ordered: Discontinued Medications Cyclobenzaprine HCl (Flexeril) 10 mg PO NOW ONE Stop: 12/23/18 17:02 Last Admin: 12/23/18 17:18 Dose: 10 mg Ketorolac Tromethamine (Toradol) 60 mg IM NOW ONE Stop: 12/23/18 17:02 Last Admin: 12/23/18 17:18 Dose: 60 mg Vital Signs - 8 hr 12/23/18 15:34 12/23/18 17:42 Temperature 97.8 F Pulse Rate 84 87 Respiratory Rate 16 18 Blood Pressure 144/82 H Blood Pressure [Right Arm] 124/81 Pulse Oximetry 96 95 <Linda Elliott DO - Last Filed: 12/24/18 14:33> Orders Ordered: Discontinued Medications Cyclobenzaprine HCl (Flexeril) 10 mg PO NOW ONE Stop: 12/23/18 17:02 Last Admin: 12/23/18 17:18 Dose: 10 mg Ketorolac Tromethamine (Toradol) 60 mg IM NOW ONE Stop: 12/23/18 17:02 Last Admin: 12/23/18 17:18 Dose: 60 mg Vital Signs - 8 hr 12/23/18 15:34 12/23/18 17:42 Temperature 97.8 F Pulse Rate 84 87 Respiratory Rate 16 18 Blood Pressure 144/82 H Blood Pressure [Right Arm] 124/81 Pulse Oximetry 96 95 MDM - Head Injury <MARILEE Prather - Last Filed: 12/23/18 18:55> Imaging Data CT scan - head: Radiologist's impression: [address] [address] [address] Scan Report Signed Patient: Keyon Das WMR#: [id number] : 1975Acct:[id number] Age/Sex: 43 / MDate of Service: 12/23/18 Loc: ED Accession Number: [id number] Procedure: CT head/brain wo con Ordering Provider: Mandie Shoemaker PROCEDURE: CT HEAD/BRAIN WO CON INDICATIONS: glf 3 days ago, loc, ctd symptoms TECHNIQUE: Noncontrast 4.5 mm thick angled axial sections acquired from the foramen magnum to the vertex, with coronal and sagittal reformats. For radiation dose reduction, the following was used: automated exposure control, adjustment of mA and/or kV according to patient size. COMPARISON: None. FINDINGS: Image quality: Excellent. CSF spaces: Basal cisterns are patent. No extra-axial fluid collections. Ventricles are normal in size and shape. Brain: No midline shift. No intracranial masses or hemorrhage. Meyer-white matter interface is normal. Skull and face: Calvarium and visualized facial bones are intact, without suspicious lesions. Sinuses: There is mild mucosal thickening maxillary sinus. No abnormal fluid is seen within the mastoid air cells or within the middle ear cavities. IMPRESSION: Normal intracranial study, without acute intracranial hemorrhage or displaced calvarial fracture. Dictated by: Sushil Gonsalves M.D. on 12/23/2018 at 15:53 Approved by: Sushil Gonsalves M.D. on 12/23/2018 at 15:54 [facility] Narrative Medical decision making narrative: The patient is a 43-year-old male who presents after hitting his head several days ago. He is a rather difficult historian, stating it is too complicated for me to go over all of it with you.However he has normal head CT does not appear to have any neurological deficit after his fall. His visual acuity is within normal limits. I gave him Toradol and Flexeril to see if it will help his various complaints of side of headache etc. The patient did not want to wait long enough for me to re-evaluate him after medication administration. After his normal head CT results came in, he wanted to leave the emergency department immediately. Given that he was GCS [address] and has normal head CT, I am okay with this. Discussed return precautions of confusion altered mental status cutter. Encouraged follow-up with primary care provider. Patient has no questions or concerns upon discharge. Discharge Plan Departure Patient Disposition: Home Clinical Impression: Post concussive syndrome Discharge Date/Time: 12/23/18 17:45 Interventions: ED Discharge Assessment Last Done: 12/23/18 17:44 Instructions: DI for Closed Head Injury, DI for Postconcussion Syndrome Activity Restrictions/Additional Instructions: Your CT scan shows no acute bleeding or fracture. Please follow up with primary care provider. Please rest and use [id number] medications and prescriptions as needed and able. Come back to the emergency department for any acute concerns such as chest pain, shortness of breath or altered mental status. Prescriptions: No Action sildenafil (antihypertensive) 40 mg PO PRN PRN (Reason: Erectile Dysfunction) RF: 0 nitroglycerin 0.4 mg tablet, sublingual 0.4 mg SL Q5-15M PRN (Reason: Chest Pain) RF: 0 metoprolol tartrate 50 MG tablet 50 mg PO BID Qty: 0 RF: 0 aspirin 325 mg Tablet 325 mg PO DAILY RF: 0 Referrals: Crys Daniel DO [Primary Care Provider] - <Linda Elliott DO - Last Filed: 12/24/18 14:33> Cosign ED Attending Sowmyaature Attestation: I was immediately available in the department for consultation. Documentation has been reviewed. I agree with assessment and plan.
--- NOTE | 2018-12-23 17:07 | PC.NURSE ---
difficult to get full history from pt. states that we already have the information. reports that his vision is blurry the closer I get. this is new
[2018-12-23] MEDS: CYCLOBENZAPRINE 10 MG TABLET PO (17:18)
[2018-12-23] MEDS: KETOROLAC 60 MG/2 ML VIAL IM (17:18)
[2018-12-23 17:42] VITALS: BP 124/81; PULSE 87; RESP 18; O2SAT 95
--- NOTE | 2018-12-23 18:55 | ED_ITS ---
HPI - Head Injury <ELZBIETA Prather- - Last Filed: 12/23/18 18:55> General Chief complaint: Head Injury Stated complaint: HIT HEAD Time Seen by Provider: 12/23/18 16:03 Source: patient and family Mode of arrival: ambulatory Limitations: no limitations History of Present Illness HPI Narrative: The patient is a 43-year-old male with history of hypertension who presents with his ?girl with a chief complaint of a fall 3 days ago. He denies midline neck or back pain. He states he is not sure if he lost consciousness or not. He denies any nausea or vomiting. He states continued dizziness, blurry vision. He states he always has dizziness and blurry vision, but now he thinks it is worse than usual. He states he has difficulty reading up close. He denies chest pain or shortness of breath. Denies any numbness or tingling. Denies any incontinence of bowel or bladder. Related Data Home Medications Medication Instructions Recorded Confirmed metoprolol tartrate 50 mg PO BID #0 03/21/17 11/25/18 aspirin 325 mg PO DAILY 04/22/18 11/25/18 nitroglycerin 0.4 mg sublingual 0.4 mg SL Q5-15M PRN 05/23/18 11/25/18 tablet sildenafil (antihypertensive) 40 mg PO PRN PRN 05/23/18 11/25/18 Allergies Allergy/AdvReac Type Severity Reaction Status Date / Time Sulfa (Sulfonamide Allergy Intermediate RESPIRATORY Verified 05/23/18 12:14 Antibiotics) PROBLEMS Review of Systems <KAYLEY Prather - Last Filed: 12/23/18 18:55> Review of Systems GENERAL: Denies chills, fatigue, malaise, fever, sweats. HEENT: Denies sinus pain, ear pain, sore throat, difficulty swallowing, dizziness. RESPIRATORY: Denies dyspnea, cough, wheezing, hemoptysis, sputum. CARDIOVASCULAR: Denies chest pain, palpitations, orthopnea, edema, GASTROINTESTINAL: Denies nausea, vomiting, abdominal pain, diarrhea, constipation, melena. : Denies dysuria, frequency, incontinence, hematuria, urinary retention. MUSCULOSKELETAL: See HPI SKIN: Denies rash, skin lesions, or other NEUROLOGIC: See HPI PSYCHIATRIC: No concerning psychosocial issues. 12 point review of systems is negative except for those stated above PFSH <MARILEE Prather - Last Filed: 12/23/18 18:55> Medical History Coronary artery disease (Acute) Hypertension (Acute) Kidney stones (Acute) Obstructive sleep apnea (Acute) Social History Smoking Status: Former smoker alcohol intake: current (occasionally) Exam <MARILEE Prather - Last Filed: 12/23/18 18:55> Narrative Exam Narrative: GENERAL: This is a well-nourished, well-developed patient, no acute distress HEAD: Atraumatic. Normocephalic. No temporal or scalp tenderness. EYES: Pupils equal round and reactive. Extraocular motions intact. No scleral icterus. No injection or drainage. No nystagmus noted. ENT: Nose without bleeding, purulent drainage or septal hematoma. Throat without erythema, tonsillar hypertrophy or exudate. Uvula midline. Airway patent. NECK: Trachea midline. No JVD or lymphadenopathy. Supple, nontender, no meningeal signs. No pain to C-spine palpation. Pain to palpation of right sternocleidomastoid. CARDIOVASCULAR: Regular rate and rhythm RESPIRATORY: Clear to auscultation. Breath sounds equal bilaterally. No wheezes, rales, or rhonchi. No cough. No increased respiratory effort. GASTROINTESTINAL: Abdomen soft, non-tender, nondistended. No hepato- splenomegaly, or palpable masses. No guarding. EXTREMITIES: No clubbing, cyanosis, or edema. No joint tenderness, effusion, or edema noted. BACK: Nontender without deformity or crepitance. No flank tenderness. No tenderness to palpation of C-spine, T-spine or L-spine. Pain to palpation of right T-spine paraspinal muscles. NEURO: AOx3. No gross cranial nerve deficit. Using all extremities equally. Stable and feet. SKIN: No rash or erythema. Initial Vital Signs Initial Vital Signs: Vital Signs Temperature 97.8 F 12/23/18 15:34 Pulse Rate 84 12/23/18 15:34 Respiratory Rate 16 12/23/18 15:34 Blood Pressure 144/82 H 12/23/18 15:34 Pulse Oximetry 96 12/23/18 15:34 <Linda Elliott DO - Last Filed: 12/24/18 14:33> Initial Vital Signs Initial Vital Signs: Vital Signs Temperature 97.8 F 12/23/18 15:34 Pulse Rate 84 12/23/18 15:34 Respiratory Rate 16 12/23/18 15:34 Blood Pressure 144/82 H 12/23/18 15:34 Pulse Oximetry 96 12/23/18 15:34 Scores <MARILEE Prather - Last Filed: 12/23/18 18:55> Nexus Score for C-Spine Focal Neurologic deficit present: No Midline spinal tenderness present: No Altered level of conciousness present: No Intoxication present: No Distracting Injury Present: No Nexus Criteria for C-spine: 0 Course <MARILEE Prather - Last Filed: 12/23/18 18:55> Orders Ordered: Discontinued Medications Cyclobenzaprine HCl (Flexeril) 10 mg PO NOW ONE Stop: 12/23/18 17:02 Last Admin: 12/23/18 17:18 Dose: 10 mg Ketorolac Tromethamine (Toradol) 60 mg IM NOW ONE Stop: 12/23/18 17:02 Last Admin: 12/23/18 17:18 Dose: 60 mg Vital Signs - 8 hr 12/23/18 15:34 12/23/18 17:42 Temperature 97.8 F Pulse Rate 84 87 Respiratory Rate 16 18 Blood Pressure 144/82 H Blood Pressure [Right Arm] 124/81 Pulse Oximetry 96 95 <Linda Elliott DO - Last Filed: 12/24/18 14:33> Orders Ordered: Discontinued Medications Cyclobenzaprine HCl (Flexeril) 10 mg PO NOW ONE Stop: 12/23/18 17:02 Last Admin: 12/23/18 17:18 Dose: 10 mg Ketorolac Tromethamine (Toradol) 60 mg IM NOW ONE Stop: 12/23/18 17:02 Last Admin: 12/23/18 17:18 Dose: 60 mg Vital Signs - 8 hr 12/23/18 15:34 12/23/18 17:42 Temperature 97.8 F Pulse Rate 84 87 Respiratory Rate 16 18 Blood Pressure 144/82 H Blood Pressure [Right Arm] 124/81 Pulse Oximetry 96 95 MDM - Head Injury <MARILEE Prather - Last Filed: 12/23/18 18:55> Imaging Data CT scan - head: Radiologist's impression: [address] [address] [address] Scan Report Signed Patient: Keyon Das WMR#: [id number] : 1975Acct:[id number] Age/Sex: 43 / MDate of Service: 12/23/18 Loc: ED Accession Number: [id number] Procedure: CT head/brain wo con Ordering Provider: Mandie Shoemaker PROCEDURE: CT HEAD/BRAIN WO CON INDICATIONS: glf 3 days ago, loc, ctd symptoms TECHNIQUE: Noncontrast 4.5 mm thick angled axial sections acquired from the foramen magnum to the vertex, with coronal and sagittal reformats. For radiation dose reduction, the following was used: automated exposure control, adjustment of mA and/or kV according to patient size. COMPARISON: None. FINDINGS: Image quality: Excellent. CSF spaces: Basal cisterns are patent. No extra-axial fluid collections. Ventricles are normal in size and shape. Brain: No midline shift. No intracranial masses or hemorrhage. Meyer-white matter interface is normal. Skull and face: Calvarium and visualized facial bones are intact, without suspicious lesions. Sinuses: There is mild mucosal thickening maxillary sinus. No abnormal fluid is seen within the mastoid air cells or within the middle ear cavities. IMPRESSION: Normal intracranial study, without acute intracranial hemorrhage or displaced calvarial fracture. Dictated by: Sushil Gonsalves M.D. on 12/23/2018 at 15:53 Approved by: Sushil Gonsalves M.D. on 12/23/2018 at 15:54 [facility] Narrative Medical decision making narrative: The patient is a 43-year-old male who presents after hitting his head several days ago. He is a rather difficult historian, stating it is too complicated for me to go over all of it with you.However he has normal head CT does not appear to have any neurological deficit after his fall. His visual acuity is within normal limits. I gave him Toradol and Flexeril to see if it will help his various complaints of side of headache etc. The patient did not want to wait long enough for me to re- evaluate him after medication administration. After his normal head CT results came in, he wanted to leave the emergency department immediately. Given that he was GCS [address] and has normal head CT, I am okay with this. Discussed return precautions of confusion altered mental status cutter. Encouraged follow-up with primary care provider. Patient has no questions or concerns upon discharge. Discharge Plan Departure Patient Disposition: Home Clinical Impression: Post concussive syndrome Discharge Date/Time: 12/23/18 17:45 Interventions: ED Discharge Assessment Last Done: 12/23/18 17:44 Instructions: DI for Closed Head Injury, DI for Postconcussion Syndrome Activity Restrictions/Additional Instructions: Your CT scan shows no acute bleeding or fracture. Please follow up with primary care provider. Please rest and use [id number] medications and prescriptions as needed and able. Come back to the emergency department for any acute concerns such as chest pain, shortness of breath or altered mental status. Prescriptions: No Action sildenafil (antihypertensive) 40 mg PO PRN PRN (Reason: Erectile Dysfunction) RF: 0 nitroglycerin 0.4 mg tablet, sublingual 0.4 mg SL Q5-15M PRN (Reason: Chest Pain) RF: 0 metoprolol tartrate 50 MG tablet 50 mg PO BID Qty: 0 RF: 0 aspirin 325 mg Tablet 325 mg PO DAILY RF: 0 Referrals: Crys Daniel DO [Primary Care Provider] - <Linda Elliott DO - Last Filed: 12/24/18 14:33> Cosign ED Attending Sowmyaature Attestation: I was immediately available in the department for consultation. Documentation has been reviewed. I agree with assessment and plan.
== END 2018-12-23 17:45 | disposition home or self-care (01) ==
PROVIDERS: Emergency Provider Nurse Practitioner Family; PCP Family Medicine
DX: F07.81 Postconcussional syndrome (principal); R42 Dizziness and giddiness; H53.8 Other visual disturbances; M54.2 Cervicalgia; M54.9 Dorsalgia, unspecified; W19.XXXA Unspecified fall, initial encounter
CPT/HCPCS: 70450; 96372; 99283; 99284; J1885

== ENCOUNTER 2019-04-07 13:41 | Emergency (ER) | payer OTHER, MEDICAID, SELFPAY ==
[2019-04-07 13:48] VITALS: BP 145/83; PULSE 86; RESP 20; TEMP 36.8; O2SAT 96; BMI 44.0
[2019-04-07] MEDS: TET,DIPH,PERTUSS(ACELL),VAC/PF 0.5 ML SYRINGE IM (16:30)
--- NOTE | 2019-04-07 16:41 | DI.RAD.S_ITS ---
PROCEDURE: XR FINGER RT MIN 2V INDICATIONS: Finger tip avulsion TECHNIQUE: AP hand, 2 views of the second finger(s) acquired. COMPARISON: [facility], KADI, FINGER LT, 10/02/2014, 3:12. FINDINGS: Bones: No fractures or dislocations. No suspicious bony lesions. Soft tissues: No suspicious soft tissue calcifications. IMPRESSION: No visualized acute fracture or dislocation. However, if clinical concern and/or pain persist, short interval imaging followup in 7-10 days is recommended, as occult injury cannot be definitively excluded. Dictated by: Mey Peralta M.D. on 04/07/2019 at 17:07 Approved by: Mey Peralta M.D. on 04/07/2019 at 17:09
--- NOTE | 2019-04-07 17:19 | ED_ITS ---
HPI - Extremity Injury (Upper) <MAYRA Mckinley - Last Filed: 04/07/19 22:45> General Chief Complaint: Extremity Injury, Upper Stated Complaint: cut tip of finger off Time Seen by Provider: 04/07/19 15:29 Source: patient Mode of arrival: ambulatory Limitations: no limitations History of Present Illness HPI narrative: 44-year-old male presents emergency department complaining of right index finger laceration after tampering with a mandoline blade. He states he was trying to figure out how sharp blade was and he ended up slicing his finger. Was able to control the bleeding with tape and gauze. Denies numbness or tingling, denies limited range of motion, denies fevers, chills, chest pain, or shortness of breath. Unsure of last tetanus. Related Data Home Medications Medication Instructions Recorded Confirmed metoprolol tartrate 50 mg PO BID #0 03/21/17 11/25/18 aspirin 325 mg PO DAILY 04/22/18 11/25/18 nitroglycerin 0.4 mg sublingual 0.4 mg SL Q5-15M PRN 05/23/18 11/25/18 tablet sildenafil (antihypertensive) 40 mg PO PRN PRN 05/23/18 11/25/18 Allergies Allergy/AdvReac Type Severity Reaction Status Date / Time Sulfa (Sulfonamide Allergy Intermediate RESPIRATORY Verified 04/07/19 13:48 Antibiotics) PROBLEMS Review of Systems <MAYRA Mckinley - Last Filed: 04/07/19 22:45> Review of Systems Narrative: Right index fingerREVIEW OF SYSTEMS: GENERAL: Denies fever or chills. HENT: Denies head trauma. EYE: Denies double vision or vision loss. CARDIOVASCULAR: Denies syncope. MUSCULOSKELETAL: Denies weakness, or deformities. INTEGUMENTARY: Complains of right index finger, see HPI. NEURO: Denies numbness or tingling. PFSH <MAYRA Mckinley - Last Filed: 04/07/19 22:45> Medical History Coronary artery disease (Acute) Hypertension (Acute) Kidney stones (Acute) Obstructive sleep apnea (Acute) Social History Smoking Status: Former smoker alcohol intake: current (occasionally) Social History Smoking Status: Former smoker alcohol intake: current (occasionally) Exam <MAYRA Mckinley - Last Filed: 04/07/19 22:45> Initial Vital Signs Initial Vital Signs: Vital Signs Temperature 98.3 F 04/07/19 13:48 Pulse Rate 86 04/07/19 13:48 Respiratory Rate 20 04/07/19 13:48 Blood Pressure 145/83 H 04/07/19 13:48 Pulse Oximetry 96 04/07/19 13:48 PHYSICAL EXAMINATION: GENERAL: Well groomed, alert, and cooperative. Answers questions promptly and appropriately. Vital signs noted. HENT: Normocephalic, atraumatic. RESPIRATORY: Normal respiratory rate, trachea midline, airway patent. No stridor, nasal flaring or accessory muscle use. MUSCULOSKELETAL: Avulsion to tip right index finger with a minute amount of nail involvement, no bone or subcu tissue visualized, no foreign body visualized. Full range of motion of right index finger, wrist, and elbow. Normal gait and coordination. Equal tone and mass bilaterally. No surrounding erythema or ecchymosis. EXTREMITIES: CMS intact. Moves all extremities. SKIN: Warm, dry, soft, appropriate color for ethnicity. NEURO: Alert and Oriented X 3. Good coordination. PSYCH: Appropriate affect and mood. <Kailey Morales MD - Last Filed: 04/10/19 01:59> Initial Vital Signs Initial Vital Signs: Vital Signs Temperature 98.3 F 04/07/19 13:48 Pulse Rate 86 04/07/19 13:48 Respiratory Rate 20 04/07/19 13:48 Blood Pressure 145/83 H 04/07/19 13:48 Pulse Oximetry 96 04/07/19 13:48 Procedures <MAYRA Mckinley - Last Filed: 04/07/19 22:45> Nerve Block Nerve Block 1: Time out performed: Yes Local Anesthetic: lidocaine 1% and with bicarb Amount of anesthesia used (mL): 10 Side: right Nerve Blocks: digital Procedure Successful: Yes Patient Tolerated Procedure: Well Complications: none Course <MAYRA Mckinley - Last Filed: 04/07/19 22:45> Orders Ordered: Discontinued Medications Diphtheria/Tetanus/Acell Pertussis (Adacel) 0.5 ml IM .ONCE ONE Stop: 04/07/19 16:25 Last Admin: 04/07/19 16:30 Dose: 0.5 ml Documented by: AMADOUCHEAU Lidocaine/Sodium Bicarbonate (Buffered Lidocaine 10 Ml Syr) 10 ml INJ NOW ONE Stop: 04/07/19 16:43 Reevaluation(s) Reevaluation #1: CMS remained intact after dressing. Surgiseal Dressing was applied by RN. Vital Signs Vital signs: Vital Signs - 8 hr 04/07/19 13:48 Temperature 98.3 F Pulse Rate 86 Respiratory Rate 20 Blood Pressure 145/83 H Pulse Oximetry 96 <Kailey Morales MD - Last Filed: 04/10/19 01:59> Orders Ordered: Discontinued Medications Diphtheria/Tetanus/Acell Pertussis (Adacel) 0.5 ml IM .ONCE ONE Stop: 04/07/19 16:25 Last Admin: 04/07/19 16:30 Dose: 0.5 ml Documented by: AMADOUCHEAU Lidocaine/Sodium Bicarbonate (Buffered Lidocaine 10 Ml Syr) 10 ml INJ NOW ONE Stop: 04/07/19 16:43 Vital Signs Vital signs: Vital Signs - 8 hr 04/07/19 13:48 Temperature 98.3 F Pulse Rate 86 Respiratory Rate 20 Blood Pressure 145/83 H Pulse Oximetry 96 MDM - Extremity Injury (Upper) <MAYRA Mckinley - Last Filed: 04/07/19 22:45> Medical Records Attestation: I reviewed the patient's medical records. Lab Data Attestation: I reviewed the patient's lab results. Imaging Data Right Index finger XR: Radiologist's impression: [address] [address] XRay Report Signed Patient: Keyon Das WMR#: [id number] : 1975Acct:[id number] Age/Sex: 44 / MDate of Service: 04/07/19 Loc: ED Accession Number: [id number] Procedure: XR finger RT min 2V Ordering Provider: Melina Steinberg PROCEDURE: XR FINGER RT MIN 2V INDICATIONS: Finger tip avulsion TECHNIQUE: AP hand, 2 views of the second finger(s) acquired. [facility] FINDINGS: Bones: No fractures or dislocations. No suspicious bony lesions. Soft tissues: No suspicious soft tissue calcifications. IMPRESSION: No visualized acute fracture or dislocation. However, if clinical concern and/or pain persist, short interval imaging followup in 7-10 days is recommended, as occult injury cannot be definitively excluded. Dictated by: Mey Peralta M.D. on 04/07/2019 at 17:07 Approved by: Mey Peralta M.D. on 04/07/2019 at 17:09 [facility] Narrative Medical decision making narrative: Minor avulsion of finger with very minimal nail involvement. Wound was not suturable, x-rays did not show any concern for open fractures. Wound was irrigated significantly and no antibiotics were indicated prophylactically. Patient's Tdap was updated. Very little concern for tendon involvement as patient has full range of motion of PIP and DIP joint of index finger. Strict return precautions given and follow-up instructions discussed.. Discharge Plan Departure Patient Disposition: Home Clinical Impression: Pre-syncope Avulsion of finger tip Qualifiers: Encounter type: initial encounter Qualified Code(s): S61.209A - Unspecified open wound of unspecified finger without damage to nail, initial encounter Discharge Date/Time: 04/07/19 17:27 Instructions: DI for Avulsion Laceration (Not Requiring Sutures) Activity Restrictions/Additional Instructions: Thank you for entrusting me with your care today. As discussed, your x-rays are negative for any fractures, please keep the entire dressing on your finger for the next 24 hours. We have placed a special dressing over the area, please keep this and placed for 7 days. Follow-up with your primary care provider in the next week for recheck. Please monitor for signs of infection such as pus, increased redness, increased pain, fevers, or malaise-this occurs please return emergency department or walk-in clinic immediately. Furthermore, return emergency department if he develops shortness of breath, chest pain, or syncope. Prescriptions: No Action sildenafil (antihypertensive) 40 mg PO PRN PRN (Reason: Erectile Dysfunction) RF: 0 nitroglycerin 0.4 mg tablet, sublingual 0.4 mg SL Q5-15M PRN (Reason: Chest Pain) RF: 0 metoprolol tartrate 50 MG tablet 50 mg PO BID Qty: 0 RF: 0 aspirin 325 mg Tablet 325 mg PO DAILY RF: 0 Referrals: Scheidt,Judye, DO [Primary Care Provider] -
== END 2019-04-07 17:27 | disposition home or self-care (01) ==
PROVIDERS: Emergency Provider Nurse Practitioner; PCP Family Medicine
DX: R55 Syncope and collapse (principal); S61.209A Unspecified open wound of unspecified finger without damage to nail, initial encounter; Z23 Encounter for immunization
CPT/HCPCS: 64450; 73140; 90471; 99282; 99283; 90715

== ENCOUNTER 2019-06-12 16:00 | Outpatient (RCR) | payer OTHER, MEDICAID, SELFPAY ==
--- NOTE | 2019-05-24 17:03 | PT.OIE ---
Current Diagnoses Low back pain (05/24/19) Unspecified abnormalities of gait and mobility (05/24/19) Abnormal posture (05/24/19) Past Medical History (Last Reviewed 04/07/19 @ 22:39 by MAYRA Mckinley) Coronary artery disease (Acute) Hypertension (Acute) Kidney stones (Acute) Obstructive sleep apnea (Acute) Visit Care Team Role Provider Type MAYRA Aguilar Primary Care Provider Non-Staff Specialty: Family Practice Address: [address], [address], [place], [address] Email: Melina Brown PA-C Attending Provider [employer] Specialty: Internal Medicine Address: [facility], [address], [place], [address] Email: [email or web address] Physical Therapy Initial Evaluation PT-OP-A Visit Information Start: 05/24/19 09:49 Freq: Status: Active Protocol: Document 05/24/19 09:50 AW (Rec: 05/24/19 17:01 AW [email or web address]) Out-Patient Physical Therapy Visit Information Visit Information Visit Type Initial Evaluation Visit Start Time 09:01 Visit Stop Time 09:45 Total Visit Minutes 44 Visit Number 1 Number of BIRD SITTER Visits 0 Evaluation Information Evaluation Date 05/24/19 PT-OP-B Current Condition Start: 05/24/19 09:49 Freq: Status: Active Protocol: Document 05/24/19 09:50 AW (Rec: 05/24/19 17:01 AW [email or web address]) Current Condition History of Current Condition Onset Date 2-3 years Current Complaints low back pain History of Current Condition Pt was injured on the job 2-3 years ago while dragging and lifting up to 20# loads. His pain has gradually worsened over the years and now interferes with his job responsibilities and ADL's. 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 About a month ago, he was helping an inebriated friend change position when he fell, re-injuring his back. At this point, his pain is 8/ 10 at worst, 4/10 at best, and 6/10 currently for an average numeric pain scale of 6/10. Pt typically sleeps on his back because he uses CPAP. Pain awakens him at least every two hours. His pain is worst with lumbar flexion and lifting, but he has pain with movement in all planes. Prior Treatments and Tests Keyon had PT in the past for back pain and found it helpful Future Testing and Treatments Planned None identified Treatment Goals Patient/Caregiver Goals Pt wants to be able to sleep more restfully, bend over, tie his shoes, and lift with less pain Prior Functional Status Baseline Function- ADL's Independent Baseline Function- Mobility Independent Baseline Function- Gait no AD Baseline Function- Work/School Pt was able to push, drag and lift up to 200# prior to injury Current Functional Impairments (Reported) Functional Limitations- ADL's Needs help to don and tie shoes Functional Limitations- Work/School Limited to upright duties, unable to perform work in flexed position Personal Factors Other Personal Factors That May Effect BMI 44 Therapy/Recovery PT-OP-C Subjective Start: 05/24/19 09:49 Freq: Status: Active Protocol: Document 05/24/19 09:50 AW (Rec: 05/24/19 17:01 AW [email or web address]) OP-PT Subjective Patient Comments Patient Comments I just want to be able to bend over and tie my shoes Patient Questionnaires Oswestry Low Back Index Oswestry Score 68 Oswestry Impairment 60 to 79% Impaired (Score 60- 79) OP-PT Pain Assessment Pain Assessment Grid Paper Pain Assessment Grid Completed Yes Location low back Pain Location Details low back Intensity 7 Scale Used Numeric (1 - 10) Description Sharp,Shooting,Spasm Frequency Constant Pain Aggravating Factors Position,Changing Position,ADL 's,Activity,Standing,Sitting, Walking,Bending,Lifting Pain Alleviating Factors None Patient Stated Pain Goal 2/10 or less Home Pain Medication Use Pain Medications Used Yes: aspirin only; does not use NSAIDs Home Pain Medication Frequency daily PT-OP-F Manual Assessment Start: 05/24/19 09:49 Freq: Status: Active Protocol: Document 05/24/19 09:50 AW (Rec: 05/24/19 17:01 AW [email or web address]) Manual Assessments Soft Tissue Assessment Soft Tissue Mobility Assessment Dense and tender lumbar paraspinals, especially lower lumbar Joint Mobility Assessment Joint Mobility Assessment Highly irritable with PA glides throughout lumbar spine , especially L4, L5. PT-OP-G Mobility & Gait Start: 05/24/19 09:49 Freq: Status: Active Protocol: Document 05/24/19 09:50 AW (Rec: 05/24/19 17:01 AW [email or web address]) OP Gait Assessment Comments Gait Comments Wide base of support, lateral lean in stance phase bilaterally, excess pronation, decreased foot clearance possibly due to weak/painful hip flexion PT-OP-H Neuro Start: 05/24/19 09:49 Freq: Status: Active Protocol: Document 05/24/19 09:50 AW (Rec: 05/24/19 17:01 AW [email or web address]) Sensation Evaluation Gross Sensation Gross Sensation WNL Deep Tendon Reflex & Clonus Assessment Deep Tendon Reflex Right Achilles Deep Tendon Reflex 0 Absent Left Achilles Deep Tendon Reflex 0 Absent Right Patellar Deep Tendon Reflex 0 Absent Left Patellar Deep Tendon Reflex 0 Absent Ankle Clonus Bilateral Clonus Assessment Absent PT-OP-J Posture/Palpation/Skin Start: 05/24/19 09:49 Freq: Status: Active Protocol: Document 05/24/19 09:50 AW (Rec: 05/24/19 17:01 AW [email or web address]) Posture Evaluation Position Standing Evaluation View Lateral Head/C-Spine Posture Forward Head Thorax Posture Neutral Pelvis Posture Anteriorly Tilted Weight Distribution Decreased Wt.Bear on (L) Hip Posture (L) Externally Rotated,(R) Externally Rotated Ankle/Foot Posture (L) Pronated,(R) Pronated PT-OP-K Range of Motion Start: 05/24/19 09:49 Freq: Status: Active Protocol: Document 05/24/19 09:50 AW (Rec: 05/24/19 17:01 AW [email or web address]) Lumbar Spine Range of Motion Lumbar Spine Active Percentage Testing Position Standing Comments Flexion - symmetrical and to knees with pain; Reid's sign on return to standing Extension - 10 degrees Lateral flexion: 5 from left knee line; 4.5 from right knee line Rotation: ~10 degrees bilaterally All planes painful Hip Goniometric Range of Motion Hip ROM Limitations Comments 90 degrees hip flexion AROM bilaterally (measured in supine with knee flexed). IR more limited than ER. Flexion, rotation, and extension all highly irritable for low back pain. PT-OP-L Special Tests Start: 05/24/19 09:49 Freq: Status: Active Protocol: Document 05/24/19 09:50 AW (Rec: 05/24/19 17:01 AW [email or web address]) Special Tests Lumbar Spine Special Tests Straight Leg Raise Test Results positive for inc ease/dec pain with compression at level of ASIS Comments active straight leg raise Manual Traction Test Results positive for pain relief; pt reports return of pain w/ release of traction Slump Test Results negative for leg pain; flexed position does reproduce LBP PT-OP-M Strength Start: 05/24/19 09:49 Freq: Status: Active Protocol: Document 05/24/19 09:50 AW (Rec: 05/24/19 17:01 AW [email or web address]) Hip Strength Hip Manual Muscle Testing Right Flexion (L2) 3 Fair Left Flexion (L2) 3 Fair Comments Only flexion could be tested due to pt's high level of reactivity Knee Strength Knee Manual Muscle Testing Right Flexion (S2) 4 Good Extension (L3) 4+ Good+ Left Flexion (S2) 4 Good Extension (L3) 4+ Good+ Comments painful resisted knee flexion PT-OP-Q Treatments Start: 05/24/19 09:49 Freq: Status: Active Protocol: Document 05/24/19 09:50 AW (Rec: 05/24/19 17:01 AW [email or web address]) Therapeutic Exercises Supine Exercises 1 Supine Exercise Name lumbar rotation Side bilateral Reps/Minutes 15 reps to each side x 3 Comments attempted seated rotation, but too provocative. supine more tolerable Self-Care/Home Management Treatment Education Patient Education Home Exercise Program Other Education - supine lumbar spine rotation (pt educated to move within pain-free range) PT-OP-T Assessment and Plan Start: 05/24/19 09:49 Freq: Status: Active Protocol: Document 05/24/19 09:50 AW (Rec: 05/24/19 17:01 AW [email or web address]) Physical Therapy Assessment Rehab Potential Rehabilitation Potential Good Evaluation Complexity Number of Personal Factors/Comorbidities 1-2 Number of Body Systems Impaired 1-2 Clinical Presentation at Evaluation Stable Impairments Impairments Activity Tolerance,Functional Activities,Functional Mobility ,Gait,Pain,Posture,ROM,Soft Tissue Mobility,Strength Other Concerns Barriers to Rehabilitation chronicity of deficits Goals Four Impairment decreased participation at work Short Term Goal (STG) Pt will work 2 hours including work in flexed position with 5/10 or less pain STG Duration 06/21/19 Director Of Epidemiology Goal (LTG) Pt will work 4 hours including work in flexed position with 3/10 or less pain LTG Duration 07/19/19 Three Impairment impaired lumbar flexion Short Term Goal (STG) Pt will demonstrate forward flexion with fingertips to knee joint line without aberrant movement on return to standing STG Duration 06/21/19 Director Of Epidemiology Goal (LTG) Pt will demonstrate forward flexion with fingertips 3 inches below knee joint line without aberrant movement on return to standing LTG Duration 07/19/19 Two Impairment Pt scores 68% impairment on Oswestry Short Term Goal (STG) Pt will score 58 or less on Oswestry to demonstrate improved daily function STG Duration 06/21/19 Nursing Home Goal (LTG) Pt will score 49 or less on Oswestry to demonstrate improved daily function LTG Duration 07/19/19 One Impairment pt has no HEP Short Term Goal (STG) Pt will be independent with HEP for support of services provided in clinic STG Duration 06/14/19 Director Of Epidemiology Goal (LTG) Pt will be independent with maintenance HEP LTG Duration 07/19/19 Assessment Summary Assessment Keyon is a 44 yo man who presents to physical therapy with chronic low back pain which was recently aggravated by a sudden movement while he was helping a friend change position. He presents with high reactivity, guarding, and irritability which makes conducting a thorough exam challenging. He has impaired hip strength in all planes, impaired abdominal strength ( evidenced by positive active straight leg test), and painful lumbar range of motion in all planes. He would benefit from skilled physical therapy to address these impairments and to increase his social and occupational participation. Physical Therapy Plan Frequency and Duration Frequency of Treatment 1-2x/week Duration of Treatment 8 weeks; up to 8 visits Plan of Care Start Date 05/24/19 Plan of Care End Date 07/19/19 Therapeutic Interventions Therapeutic Interventions Aquatic Therapy,Balance Training,Gait Training,Home Exercise Program,Joint Mobilizations,Manual Therapy, Neuromuscular Re-education, Orthotic/Prosthetic Management ,Patient/Caregiver Education, Self-Care/Home Management,Soft Tissue Mobilization,Taping, Therapeutic Activities, Therapeutic Exercises Modalities Cold Pack/Ice Massage,Electric Stimulation,Hot Packs Next Visit Focus/Plan Next Note Type Treatment Note Next Visit Plan Bhavna Start Back questionaire Assess vitals Initiate gentle lumbar and hip AROM
--- NOTE | 2019-06-07 09:27 | PT-OP ANOTE ---
Called pt at 0915 to inquire about 2nd no-show appointment. He states someone from the hospital called to remind him and that he cancelled at that time. Reminded pt of attendance policy and of next appointment on 06/12 at 1600.
--- NOTE | 2019-06-12 16:57 | PT.OTN ---
Current Diagnoses Low back pain (06/12/19) Unspecified abnormalities of gait and mobility (06/12/19) Abnormal posture (06/12/19) Physical Therapy Treatment Note PT-OP-A Visit Information Start: 05/24/19 09:49 Freq: Status: Active Protocol: Document 06/12/19 16:41 AW (Rec: 06/12/19 16:57 AW [email or web address]) Out-Patient Physical Therapy Visit Information Visit Information Visit Type Treatment Note Visit Start Time 15:59 Visit Stop Time 16:39 Total Visit Minutes 40 Visit Number 2 Evaluation Information Evaluation Date 05/24/19 PT-OP-B Current Condition Start: 05/24/19 09:49 Freq: Status: Active Protocol: Document 05/24/19 09:50 AW (Rec: 05/24/19 17:01 AW [email or web address]) Current Condition History of Current Condition Onset Date 2-3 years Current Complaints low back pain History of Current Condition Pt was injured on the job 2-3 years ago while dragging and lifting up to 20# loads. His pain has gradually worsened over the years and now interferes with his job responsibilities and ADL's. 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 About a month ago, he was helping an inebriated friend change position when he fell, re-injuring his back. At this point, his pain is 8/ 10 at worst, 4/10 at best, and 6/10 currently for an average numeric pain scale of 6/10. Pt typically sleeps on his back because he uses CPAP. Pain awakens him at least every two hours. His pain is worst with lumbar flexion and lifting, but he has pain with movement in all planes. Prior Treatments and Tests [place] had PT in the past for back pain and found it helpful Future Testing and Treatments Planned None identified Treatment Goals Patient/Caregiver Goals Pt wants to be able to sleep more restfully, bend over, tie his shoes, and lift with less pain Prior Functional Status Baseline Function- ADL's Independent Baseline Function- Mobility Independent Baseline Function- Gait no AD Baseline Function- Work/School Pt was able to push, drag and lift up to 200# prior to injury Current Functional Impairments (Reported) Functional Limitations- ADL's Needs help to don and tie shoes Functional Limitations- Work/School Limited to upright duties, unable to perform work in flexed position Personal Factors Other Personal Factors That May Effect BMI 44 Therapy/Recovery PT-OP-C Subjective Start: 05/24/19 09:49 Freq: Status: Active Protocol: Document 06/12/19 16:41 AW (Rec: 06/12/19 16:57 AW [email or web address]) OP-PT Subjective Patient Comments Patient Comments I hurt so bad after the evaluation that I couldn't go to work the next day. PT-OP-F Manual Assessment Start: 05/24/19 09:49 Freq: Status: Active Protocol: Document 05/24/19 09:50 AW (Rec: 05/24/19 17:01 AW [email or web address]) Manual Assessments Soft Tissue Assessment Soft Tissue Mobility Assessment Dense and tender lumbar paraspinals, especially lower lumbar Joint Mobility Assessment Joint Mobility Assessment Highly irritable with PA glides throughout lumbar spine , especially L4, L5. PT-OP-G Mobility & Gait Start: 05/24/19 09:49 Freq: Status: Active Protocol: Document 05/24/19 09:50 AW (Rec: 05/24/19 17:01 AW [email or web address]) OP Gait Assessment Comments Gait Comments Wide base of support, lateral lean in stance phase bilaterally, excess pronation, decreased foot clearance possibly due to weak/painful hip flexion PT-OP-H Neuro Start: 05/24/19 09:49 Freq: Status: Active Protocol: Document 05/24/19 09:50 AW (Rec: 05/24/19 17:01 AW [email or web address]) Sensation Evaluation Gross Sensation Gross Sensation WNL Deep Tendon Reflex & Clonus Assessment Deep Tendon Reflex Right Achilles Deep Tendon Reflex 0 Absent Left Achilles Deep Tendon Reflex 0 Absent Right Patellar Deep Tendon Reflex 0 Absent Left Patellar Deep Tendon Reflex 0 Absent Ankle Clonus Bilateral Clonus Assessment Absent PT-OP-J Posture/Palpation/Skin Start: 05/24/19 09:49 Freq: Status: Active Protocol: Document 05/24/19 09:50 AW (Rec: 05/24/19 17:01 AW [email or web address]) Posture Evaluation Position Standing Evaluation View Lateral Head/C-Spine Posture Forward Head Thorax Posture Neutral Pelvis Posture Anteriorly Tilted Weight Distribution Decreased Wt.Bear on (L) Hip Posture (L) Externally Rotated,(R) Externally Rotated Ankle/Foot Posture (L) Pronated,(R) Pronated PT-OP-K Range of Motion Start: 05/24/19 09:49 Freq: Status: Active Protocol: Document 05/24/19 09:50 AW (Rec: 05/24/19 17:01 AW [email or web address]) Lumbar Spine Range of Motion Lumbar Spine Active Percentage Testing Position Standing Comments Flexion - symmetrical and to knees with pain; [place]'s sign on return to standing Extension - 10 degrees Lateral flexion: 5 from left knee line; 4.5 from right knee line Rotation: ~10 degrees bilaterally All planes painful Hip Goniometric Range of Motion Hip ROM Limitations Comments 90 degrees hip flexion AROM bilaterally (measured in supine with knee flexed). IR more limited than ER. Flexion, rotation, and extension all highly irritable for low back pain. PT-OP-L Special Tests Start: 05/24/19 09:49 Freq: Status: Active Protocol: Document 05/24/19 09:50 AW (Rec: 05/24/19 17:01 AW [email or web address]) Special Tests Lumbar Spine Special Tests Straight Leg Raise Test Results positive for inc ease/dec pain with compression at level of ASIS Comments active straight leg raise Manual Traction Test Results positive for pain relief; pt reports return of pain w/ release of traction Slump Test Results negative for leg pain; flexed position does reproduce LBP PT-OP-M Strength Start: 05/24/19 09:49 Freq: Status: Active Protocol: Document 05/24/19 09:50 AW (Rec: 05/24/19 17:01 AW [email or web address]) Hip Strength Hip Manual Muscle Testing Right Flexion (L2) 3 Fair Left Flexion (L2) 3 Fair Comments Only flexion could be tested due to pt's high level of reactivity Knee Strength Knee Manual Muscle Testing Right Flexion (S2) 4 Good Extension (L3) 4+ Good+ Left Flexion (S2) 4 Good Extension (L3) 4+ Good+ Comments painful resisted knee flexion PT-OP-Q Treatments Start: 05/24/19 09:49 Freq: Status: Active Protocol: Document 06/12/19 16:41 AW (Rec: 06/12/19 16:57 AW [email or web address]) Therapeutic Exercises Supine Exercises 3 Supine Exercise Name transverse abdominus activation Side bilateral Reps/Minutes 5 minutes Comments cues for breathing; progressed to heel slides (heel contacting mat) 2 Supine Exercise Name marching Side bilateral Equipment Used bolster under knees Reps/Minutes 4 minutes Comments pt able to lift bent leg ~4 inches; pain worse with right hip flexion 1 Supine Exercise Name lumbar rotation Side bilateral Reps/Minutes 10 reps to each side Comments pt has been doing this at home ; needs cues for controlled movement Sitting Exercises 2 Sitting Exercise Name scapular retraction Side bilateral Reps/Minutes 2x8 reps Comments cues to pinch shoulder blades together 1 Sitting Exercise Name scapular protraction Side bilateral Reps/Minutes 2x8 reps Standing Exercises 1 Standing Exercise Name lumbar extension at wall Reps/Minutes 2x10 reps Comments cues to push hips toward wall Self-Care/Home Management Treatment Education Patient Education Home Exercise Program Other Education - supine march with support under lower legs - supine lower trunk rotation - standing lumbar extension at wall - scapular protraction - scapular retraction PT-OP-T Assessment and Plan Start: 05/24/19 09:49 Freq: Status: Active Protocol: Document 06/12/19 16:41 AW (Rec: 06/12/19 16:57 AW [email or web address]) Physical Therapy Assessment Goals Four Impairment decreased participation at work Short Term Goal (STG) Pt will work 2 hours including work in flexed position with 5/10 or less pain STG Duration 06/21/19 Four Roll Calender Operator Goal (LTG) Pt will work 4 hours including work in flexed position with 3/10 or less pain LTG Duration 07/19/19 Three Impairment impaired lumbar flexion Short Term Goal (STG) Pt will demonstrate forward flexion with fingertips to knee joint line without aberrant movement on return to standing STG Duration 06/21/19 Shelter Goal (LTG) Pt will demonstrate forward flexion with fingertips 3 inches below knee joint line without aberrant movement on return to standing LTG Duration 07/19/19 Two Impairment Pt scores 68% impairment on Oswestry Short Term Goal (STG) Pt will score 58 or less on Oswestry to demonstrate improved daily function STG Duration 06/21/19 Four Roll Calender Operator Goal (LTG) Pt will score 49 or less on Oswestry to demonstrate improved daily function LTG Duration 07/19/19 One Impairment pt has no HEP Short Term Goal (STG) Pt will be independent with HEP for support of services provided in clinic STG Duration 06/14/19 Four Roll Calender Operator Goal (LTG) Pt will be independent with maintenance HEP LTG Duration 07/19/19 Assessment Summary Assessment Pt is tolerating limited lumbar range of motion. Educated patient to keep exercise within a range that does not increase his pain more than 1-2 points on a 10- point scale. Pt asking if he should carry two firearms on his belt instead of just one with the idea of evening out the weight distribution. Counseled patient that evenly distributed weight could help to improve his symptoms. Pt is anxious to get better quickly and is likely to push through symptoms. He requires frequent cueing and education about graded exposure, progressive resistance. Pt will bring back completed Bhavna Start Back questionnaire . Physical Therapy Plan Frequency and Duration Frequency of Treatment 1-2x/week Duration of Treatment 8 weeks; up to 8 visits Plan of Care Start Date 05/24/19 Plan of Care End Date 07/19/19 Therapeutic Interventions Therapeutic Interventions Aquatic Therapy,Balance Training,Gait Training,Home Exercise Program,Joint Mobilizations,Manual Therapy, Neuromuscular Re-education, Orthotic/Prosthetic Management ,Patient/Caregiver Education, Self-Care/Home Management,Soft Tissue Mobilization,Taping, Therapeutic Activities, Therapeutic Exercises Modalities Cold Pack/Ice Massage,Electric Stimulation,Hot Packs Next Visit Focus/Plan Next Note Type Treatment Note Next Visit Plan Assess vitals. Assess response to home program. Progress gentle lumbar and hip ROM.
--- NOTE | 2019-06-14 15:44 | PT-OP ANOTE ---
Pt showed up for scheduled appointment but declined treatment, stating he hurt his back badly today lifting a heavy object at work. He expressed concern that this would count as a no-show. PT attempted to persuade pt to participate in gentle treatment session today, but he continued to decline. PT emailed schedule of remaining appointments to pt, asking him to reschedule any he knew he could not make as soon as possible. Informed pt that any further no-shows - including cancels within 24 hours - would result in discharge.
--- NOTE | 2019-06-28 15:48 | PT-OP ANOTE ---
Pt contacted by phone about 3rd no-show today. He was apologetic and claimed he was unaware of today's appointment. Counseled pt that next Wednesday at 1515 is his last scheduled appointment and that he would need to attend or be discharged per department attendance policy.
--- NOTE | 2019-09-27 11:46 | PT.OPDS ---
Current Diagnoses Low back pain (06/12/19) Unspecified abnormalities of gait and mobility (06/12/19) Abnormal posture (06/12/19) Visit Care Team Role Provider Type MAYRA Aguilar Primary Care Provider Non-Staff Specialty: Family Practice Address: [address] [place] [address], [id number] Email: Melina Brown PA-C Attending Provider Advanced Transit Coach Operator Specialty: Internal Medicine Address: [address] [place] [address], [place], [address] Email: [email or web address] Visit Number Visit Number 2 Discharge Summary PT-OP-B Current Condition Start: 05/24/19 09:49 Freq: Status: Active Protocol: Document 05/24/19 09:50 AW (Rec: 05/24/19 17:01 AW [email or web address]) Current Condition History of Current Condition Onset Date 2-3 years Current Complaints low back pain History of Current Condition Pt was injured on the job 2-3 years ago while dragging and lifting up to 20# loads. His pain has gradually worsened over the years and now interferes with his job responsibilities and ADL's. 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 About a month ago, he was helping an inebriated friend change position when he fell, re-injuring his back. At this point, his pain is 8/ 10 at worst, 4/10 at best, and 6/10 currently for an average numeric pain scale of 6/10. Pt typically sleeps on his back because he uses CPAP. Pain awakens him at least every two hours. His pain is worst with lumbar flexion and lifting, but he has pain with movement in all planes. Prior Treatments and Tests [place] had PT in the past for back pain and found it helpful Future Testing and Treatments Planned None identified Treatment Goals Patient/Caregiver Goals Pt wants to be able to sleep more restfully, bend over, tie his shoes, and lift with less pain Prior Functional Status Baseline Function- ADL's Independent Baseline Function- Mobility Independent Baseline Function- Gait no AD Baseline Function- Work/School Pt was able to push, drag and lift up to 200# prior to injury Current Functional Impairments (Reported) Functional Limitations- ADL's Needs help to don and tie shoes Functional Limitations- Work/School Limited to upright duties, unable to perform work in flexed position Personal Factors Other Personal Factors That May Effect BMI 44 Therapy/Recovery PT-OP-C Subjective Start: 05/24/19 09:49 Freq: Status: Active Protocol: Document 06/12/19 16:41 AW (Rec: 06/12/19 16:57 AW [email or web address]) OP-PT Subjective Patient Comments Patient Comments I hurt so bad after the evaluation that I couldn't go to work the next day. PT-OP-F Manual Assessment Start: 05/24/19 09:49 Freq: Status: Active Protocol: Document 05/24/19 09:50 AW (Rec: 05/24/19 17:01 AW [email or web address]) Manual Assessments Soft Tissue Assessment Soft Tissue Mobility Assessment Dense and tender lumbar paraspinals, especially lower lumbar Joint Mobility Assessment Joint Mobility Assessment Highly irritable with PA glides throughout lumbar spine , especially L4, L5. PT-OP-G Mobility & Gait Start: 05/24/19 09:49 Freq: Status: Active Protocol: Document 05/24/19 09:50 AW (Rec: 05/24/19 17:01 AW [email or web address]) OP Gait Assessment Comments Gait Comments Wide base of support, lateral lean in stance phase bilaterally, excess pronation, decreased foot clearance possibly due to weak/painful hip flexion PT-OP-H Neuro Start: 05/24/19 09:49 Freq: Status: Active Protocol: Document 05/24/19 09:50 AW (Rec: 05/24/19 17:01 AW [email or web address]) Sensation Evaluation Gross Sensation Gross Sensation WNL Deep Tendon Reflex & Clonus Assessment Deep Tendon Reflex Right Achilles Deep Tendon Reflex 0 Absent Left Achilles Deep Tendon Reflex 0 Absent Right Patellar Deep Tendon Reflex 0 Absent Left Patellar Deep Tendon Reflex 0 Absent Ankle Clonus Bilateral Clonus Assessment Absent PT-OP-J Posture/Palpation/Skin Start: 05/24/19 09:49 Freq: Status: Active Protocol: Document 05/24/19 09:50 AW (Rec: 05/24/19 17:01 AW [email or web address]) Posture Evaluation Position Standing Evaluation View Lateral Head/C-Spine Posture Forward Head Thorax Posture Neutral Pelvis Posture Anteriorly Tilted Weight Distribution Decreased Wt.Bear on (L) Hip Posture (L) Externally Rotated,(R) Externally Rotated Ankle/Foot Posture (L) Pronated,(R) Pronated PT-OP-K Range of Motion Start: 05/24/19 09:49 Freq: Status: Active Protocol: Document 05/24/19 09:50 AW (Rec: 05/24/19 17:01 AW [email or web address]) Lumbar Spine Range of Motion Lumbar Spine Active Percentage Testing Position Standing Comments Flexion - symmetrical and to knees with pain; Reid's sign on return to standing Extension - 10 degrees Lateral flexion: 5 from left knee line; 4.5 from right knee line Rotation: ~10 degrees bilaterally All planes painful Hip Goniometric Range of Motion Hip ROM Limitations Comments 90 degrees hip flexion AROM bilaterally (measured in supine with knee flexed). IR more limited than ER. Flexion, rotation, and extension all highly irritable for low back pain. PT-OP-L Special Tests Start: 05/24/19 09:49 Freq: Status: Active Protocol: Document 05/24/19 09:50 AW (Rec: 05/24/19 17:01 AW [email or web address]) Special Tests Lumbar Spine Special Tests Straight Leg Raise Test Results positive for inc ease/dec pain with compression at level of ASIS Comments active straight leg raise Manual Traction Test Results positive for pain relief; pt reports return of pain w/ release of traction Slump Test Results negative for leg pain; flexed position does reproduce LBP PT-OP-M Strength Start: 05/24/19 09:49 Freq: Status: Active Protocol: Document 05/24/19 09:50 AW (Rec: 05/24/19 17:01 AW [email or web address]) Hip Strength Hip Manual Muscle Testing Right Flexion (L2) 3 Fair Left Flexion (L2) 3 Fair Comments Only flexion could be tested due to pt's high level of reactivity Knee Strength Knee Manual Muscle Testing Right Flexion (S2) 4 Good Extension (L3) 4+ Good+ Left Flexion (S2) 4 Good Extension (L3) 4+ Good+ Comments painful resisted knee flexion PT-OP-T Assessment and Plan Start: 05/24/19 09:49 Freq: Status: Active Protocol: Document 09/27/19 11:45 AW (Rec: 09/27/19 11:46 AW [email or web address]) Physical Therapy Plan Discharge Physical Therapy Discharge Reasons No Longer Attending PT Discharge Comments Pt has not attended since June. Multiple attempts to reach the patient by phone have been unsuccessful. Pt will need a new referral if he wishes to return to PT.
== END 2019-12-21 10:20 ==
LOC: PHYS 16:00
PROVIDERS: PCP Nurse Practitioner; Visit Provider Physician Assistant
DX: M54.5 Low back pain (principal); R29.3 Abnormal posture; R26.9 Unspecified abnormalities of gait and mobility
CPT/HCPCS: 97110; 97161

== ENCOUNTER 2019-12-17 15:23 | Emergency (ER) | payer OTHER, MEDICAID, SELFPAY ==
[2019-12-17 15:33] VITALS: BP 127/87; PULSE 69; RESP 16; TEMP 36.8; O2SAT 98; BMI 38.9
--- NOTE | 2019-12-17 16:14 | PC.NURSE ---
pt comes out of room raising his voice asking to see someone. states he feels fine and has to be to bank by a certain time in order to avoid late charges. explained to patient providers are going to see him just as soon as they can. pt states i feel fine, I am better I just need them to tell me Im oK. again explained to patient they are working as fast and safely as possible to get in to evaluate pt. pt states ill wait a few more minutes, then I am leaving. verbalized understanding and pt returned into room.
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
== END 2019-12-17 16:59 | disposition left against medical advice (07) ==
PROVIDERS: Emergency Provider Nurse Practitioner; PCP Nurse Practitioner
DX: R07.9 Chest pain, unspecified (principal); R00.0 Tachycardia, unspecified; V43.52XA Car driver injured in collision with other type car in traffic accident, initial encounter; Y92.414 Local residential or business street as the place of occurrence of the external cause
CPT/HCPCS: 99281

== ENCOUNTER → 2020-10-22 11:37 | Outpatient (CLI) | payer OTHER, MEDICAID, SELFPAY ==
--- NOTE | 2020-10-22 | DI.MRI.S_ITS ---
PROCEDURE: MR HEAD/BRAIN WO/W CON INDICATIONS: Unspecified speech disturbances TECHNIQUE: Noncontrast axial T1 spin echo, axial T2 fast spin echo, sagittal and axial FLAIR, coronal T2 fast spin echo, axial gradient echo, axial diffusion and ADC through the brain. After the administration of contrast, axial and coronal 3D VIBE or T1 spin echo with fat saturation through the brain. COMPARISON: [facility], CT, CT SINUS SCREEN WO CON, 06/24/2018, 10:20Of current exam . [facility], MR, MR BRAIN WITH/WITHOUT CONTRAST, 10/10/2018, 13:26. [facility], CT, CT HEAD/BRAIN WO CON, 12/23/2018, 16:39. FINDINGS: Image quality: Excellent. CSF Spaces: Basal cisterns are patent. No extra-axial fluid collections. Ventricles are normal in size and shape. Brain: No midline shift. No intracranial bleeds or masses. No abnormal intracranial enhancement. The brainstem appears normal. Diffusion-weighted images demonstrate no acute ischemic insults. No chronic ischemic insults. Normal intravascular flow voids are present. Skull and face: There is a focus of 9 mm hyperintense T2 signal within the clivus. It is relatively hypointense on T1. This was present in 2019 MRI brain. An ill-defined area of hypodensity is noted on CT brain and CT sinus of 12/23/2018 as well as 06/24/2018. Orbits appear normal. Sinuses: Sinuses and mastoids appear clear. IMPRESSION: 1. No acute intracranial process. 2. Hyperintense focus within the clivus, stable since 2019. Overall appearance is suggestive of a hemangioma. 1 year interval follow-up is recommended to document stability. However, if there is known primary malignancy, bone scan is recommended. Dictated by: Mey Peralta M.D. on 10/22/2020 at 14:58 Approved by: Mey Peralta M.D. on 10/22/2020 at 15:05
== END ==
PROVIDERS: PCP Nurse Practitioner; Referring Provider Nurse Practitioner; Visit Provider Nurse Practitioner
DX: R47.9 Unspecified speech disturbances (principal); R20.2 Paresthesia of skin; I47.2 Ventricular tachycardia; Z91.19 Patient's noncompliance with other medical treatment and regimen
CPT/HCPCS: 70553

== ENCOUNTER 2022-07-08 23:11 | Emergency (ER) | payer OTHER, MEDICAID, SELFPAY ==
[2022-07-08 23:21] VITALS: BP 195/111; PULSE 88; RESP 18; TEMP 36.9; O2SAT 97; BMI 40.6
--- NOTE | 2022-07-08 23:26 | DI.RAD.S_ITS ---
PROCEDURE: XR CHEST 1V INDICATIONS: chest pain TECHNIQUE: One view of the chest was acquired. COMPARISON: [facility], CR, XR CHEST 1V, 11/25/2018, 19:10. FINDINGS: Surgical changes and devices: None. Lungs and pleura: Lungs are clear. No pleural effusions or pneumothorax. Mediastinum: Mediastinal contours appear normal. Heart size is normal. Bones and chest wall: No suspicious bony lesions. Overlying soft tissues appear unremarkable. IMPRESSION: 1. No acute cardiopulmonary disease. Dictated by: Del Song M.D. on 07/09/2022 at 1:39 Approved by: Del Song M.D. on 07/09/2022 at 1:39
[2022-07-08 23:30] VITALS: PULSE 92; RESP 23
[2022-07-08 23:33] VITALS: BP 195/87
[2022-07-08] MEDS: ASPIRIN 81 MG CHEW TAB 324 MG PO (23:33)
[2022-07-08] MEDS: NITROGLYCERIN 0.4 MG SL TAB SL ×2 (23:33→23:40)
--- NOTE | 2022-07-08 23:33 | ED_ITS ---
HPI - Chest Pain General Chief Complaint: Chest Pain Stated Complaint: chest pain Time Seen by Provider: 07/08/22 23:17 Source: patient Mode of arrival: Ambulatory Limitations: no limitations History of Present Illness HPI narrative: 47-year-old male daily smoker with history of hypertension, coronary artery disease, prior TIA and chronic dental problems with recent dental abscess presents with the chief complaint of left sided chest pressure that started about 30 minutes to his [place]. He states he looked at his pulse oximeter which read elevated HR in the 110s to 120s. He denies obvious provocation, palliation or radiation of this discomfort but does think that since his heart rate is slow down his symptoms have improved. At onset his pressure was about an 8/10 and on arrival he is down to a 2/10. He states he has been having a hard time sleeping the last few days and although he is increasingly fatigued over his baseline he attributes it to his lack of sleep. He has had some nausea but states that is persistent. He denies recent travel, injury or trauma, known cancer or history of blood clot. Related Data Home Medications Medication Instructions Recorded Confirmed metoprolol tartrate 50 mg tablet 50 mg PO BID ##0 03/21/17 05/03/19 aspirin 325 mg tablet 325 mg PO DAILY 04/22/18 05/03/19 nitroglycerin 0.4 mg sublingual 0.4 mg sublingual Q5-15M PRN Chest 05/23/18 05/03/19 tablet Pain sildenafil (antihypertensive) 40 mg PO PRN PRN Erectile 05/23/18 05/03/19 Dysfunction Previous Rx's Medication Instructions Recorded cyclobenzaprine 10 mg tablet 10 mg PO BEDTIME #10 tabs 05/03/19 prednisone 20 mg tablet 20 mg PO DAILY #14 tabs 05/03/19 Allergies Allergy/AdvReac Type Severity Reaction Status Date / Time Sulfa (Sulfonamide Allergy Intermediate RESPIRATORY Verified 07/08/22 23:21 Antibiotics) PROBLEMS Review of Systems Review of Systems Narrative: GENERAL: See HPI HEENT: Denies sinus pain, ear pain, sore throat, difficulty swallowing, dizziness. RESPIRATORY: See HPI CARDIOVASCULAR: See HPI GASTROINTESTINAL: Denies nausea, vomiting, abdominal pain, diarrhea, constipation, melena. : Denies dysuria, frequency, incontinence, hematuria, urinary retention. MUSCULOSKELETAL: denies weakness, joint pain, or bony pain SKIN: Denies rash, skin lesions, or other NEUROLOGIC: Denies weakness, headache, numbness, change in speech, confusion, seizures, incoordination. PSYCHIATRIC: No concerning psychosocial issues. 12 point review of systems is negative except for those stated above Patient History Medical History (Updated 07/09/22 @ 02:55 by Zander Chou DO) Coronary artery disease Hypertension Kidney stones Obstructive sleep apnea Social History Smoking Status: Current every day smoker alcohol intake: current (occasionally) Smoking Status: Current every day smoker alcohol intake frequency: a few times a month Substance Use Type: does not use Exam Narrative Exam Narrative: GENERAL: [47] year old patient appears stated age. Well-developed patient, in mild distress. HEAD: Atraumatic. Normocephalic. EYES: Pupils equal round and reactive. Extraocular motions intact. No scleral icterus. No injection or drainage. ENT: Nose without bleeding, purulent drainage. Throat without erythema, tonsil lar hypertrophy or exudate. Airway patent. NECK: Trachea midline. Non tender CARDIOVASCULAR: Regular rate and rhythm without murmurs, gallops, or rubs. RESPIRATORY: Clear to auscultation. Breath sounds equal bilaterally. No wheezes, rales, or rhonchi. GASTROINTESTINAL: Abdomen soft, non-tender, nondistended. EXTREMITIES: No edema or joint tenderness. BACK: Nontender without deformity or crepitance. No flank tenderness. NEURO: AOx3. SKIN: No rash or erythema of visible areas Initial Vital Signs Initial Vital Signs: Vital Signs Temperature 98.4 F 07/08/22 23:21 Pulse Rate 88 07/08/22 23:21 Respiratory Rate 18 07/08/22 23:21 Blood Pressure 195/111 H 07/08/22 23:21 Pulse Oximetry 97 07/08/22 23:21 Oxygen Delivery Method 07/08/22 23:21 Scores HEART Score Heart Score history: Slightly Suspicious Heart Score EKG: Normal Heart Score Age: 45-64 years old Heart Score risk factors: > 3 risk factors or hx of atherosclerotic disease Heart Score troponin: < or = to normal limit Heart Score Total: 3 Course Orders Ordered: ED Orders 07/08/22 23:25 Complete Blood Count AUTO DIFF Stat Comprehensive Metabolic Panel Stat Lipase Stat NT-proBNP (BNP-Adult 18+) Stat Partial Thromboplastin Time Stat Prothrombin Time INR Stat Troponin & CK Cardiac Panel Stat 07/08/22 23:26 XR chest 1V Stat EKG-12 Lead Stat 07/08/22 23:47 COVID19 -Nasal RAPID/Pre-Proc Stat 07/09/22 02:20 Troponin & CK Cardiac Panel Stat Sodium Chloride (Normal Saline 0.9%) 1,000 mls @ 150 mls/hr IV CONT SOLOMON Last Infusion: 07/09/22 02:14 Dose: 0 mls/hr Documented By: Admin: 07/08/22 23:42 Dose: 150 mls/hr Documented By: ERIKA Nitroglycerin (Nitroglycerin 0.4 Mg Sl Tab) 0.4 mg SL [id number] PRN PRN Reason: Chest Pain Last Admin: 07/08/22 23:40 Dose: 0.4 mg Documented By: Admin: 07/08/22 23:33 Dose: 0.4 mg Documented By: ERIKA Discontinued Medications Aspirin (Aspirin 81 Mg Chew Tab) 324 mg PO NOW ONE Stop: 07/08/22 23:27 Last Admin: 07/08/22 23:33 Dose: 324 mg Documented By: ERIKA Aspirin (Aspirin 81 Mg Chew Tab) 324 mg PO NOW ONE Stop: 07/08/22 23:28 Last Admin: 07/09/22 02:23 Dose: Not Given Documented By: PATEL Metoprolol Tartrate (Metoprolol Tartrate 5 Mg/5 Ml Inj) 5 mg IV NOW ONE Stop: 07/08/22 23:28 Last Admin: 07/09/22 00:41 Dose: Not Given Documented By: ERIKA Reevaluation(s) Reevaluation #1: Patient blood pressure dropped to the 140s after a single nitro. His pain is nearly 0 Vital Signs Vital signs: Vital Signs - 8 hr 07/08/22 23:21 07/08/22 23:33 07/08/22 23:40 Temperature 98.4 F Pulse Rate 88 98 H Respiratory Rate 18 Blood Pressure 195/111 H 195/87 H 145/78 H Pulse Oximetry 97 Oxygen Delivery Method Room Air 07/08/22 23:45 Temperature Pulse Rate 74 Respiratory Rate 16 Blood Pressure 138/74 Pulse Oximetry 98 Oxygen Delivery Method Room Air MDM - Chest Pain Lab Data Result diagrams: 07/08/22 23:25 07/08/22 23:25 Labs: Lab Results 07/08/22 07/08/22 07/08/22 Range/Units 23:25 23:25 23:25 WBC 7.7 (4.5-11.0) X10^3/uL RBC 4.76 (4.5-5.9) X10^6/uL Hgb 13.7 (13.5-17.5) g/dL Hct 40.1 L (41-53) % MCV 84.2 (80-100) fL MCH 28.8 (26-34) PG MCHC 34.2 (30-36) % RDW 13.9 (11.6-14.8) % Plt Count 158 (150-400) X10^3/uL Neut % (Auto) 62.3 (50-75) % Lymph % (Auto) 27.2 (25-40) % [place] % (Auto) 6.2 (3-14) % Eos % (Auto) 3.7 (2-4) % Baso % (Auto) 0.6 (0-2) % Neut # (Auto) 4800 (0827-8610) /uL Lymph # (Auto) 2100 (0665-4912) /uL [place] # (Auto) 500 (0-900) /uL Eos # (Auto) 300 (0-450) /uL Baso # (Auto) 0 (0-100) /uL PT 12.4 (10.1-12.7) SECONDS INR 1.1 (0.9-1.3) APTT 24 L (26-36) SECONDS Sodium 139 (137-145) mmol/L Potassium 4.1 (3.4-5.1) mmol/L Chloride 100 (98-107) mmol/L Carbon Dioxide 29 (22-32) mmol/L BUN 14 (9-20) mg/dL Creatinine 0.72 (0.66-1.25) mg/dL Estimated GFR > 60 (>60) mL/min BUN/Creatinine Ratio 19.4 (6-22) Glucose 166 H (70-100) mg/dL Calcium 9.2 (8.4-10.2) mg/dL Total Bilirubin 0.6 (0.2-1.3) mg/dL AST 30 (17-59) IU/L ALT 34 (<50) IU/L Alkaline Phosphatase 72 (38-126) U/L Total Creatine Kinase 106 (55-170) U/L CK-MB (CK-2) 0.86 (<2.37) ng/mL CK-MB (CK-2) Rel Index 0.8 L (1.5-5.0) % Troponin I < 0.012 (0.01-0.034) ng/mL NT-Pro-B Natriuret Pep (<125) pg/mL Total Protein 7.0 (6.3-8.2) g/dL Albumin 4.3 (3.5-5.0) g/dL Globulin 2.7 (1.7-4.1) g/dL Albumin/Globulin Ratio 1.6 (1.0-2.8) Lipase 176 (23-300) U/L SARS-CoV-2 (PCR) (Negative) 07/08/22 07/08/22 07/09/22 Range/Units 23:25 23:47 02:20 WBC (4.5-11.0) X10^3/uL RBC (4.5-5.9) X10^6/uL Hgb (13.5-17.5) g/dL Hct (41-53) % MCV (80-100) fL MCH (26-34) PG MCHC (30-36) % RDW (11.6-14.8) % Plt Count (150-400) X10^3/uL Neut % (Auto) (50-75) % Lymph % (Auto) (25-40) % [place] % (Auto) (3-14) % Eos % (Auto) (2-4) % Baso % (Auto) (0-2) % Neut # (Auto) (6135-3832) /uL Lymph # (Auto) (8651-6814) /uL [place] # (Auto) (0-900) /uL Eos # (Auto) (0-450) /uL Baso # (Auto) (0-100) /uL PT (10.1-12.7) SECONDS INR (0.9-1.3) APTT (26-36) SECONDS Sodium (137-145) mmol/L Potassium (3.4-5.1) mmol/L Chloride (98-107) mmol/L Carbon Dioxide (22-32) mmol/L BUN (9-20) mg/dL Creatinine (0.66-1.25) mg/dL Estimated GFR (>60) mL/min BUN/Creatinine Ratio (6-22) Glucose (70-100) mg/dL Calcium (8.4-10.2) mg/dL Total Bilirubin (0.2-1.3) mg/dL AST (17-59) IU/L ALT (<50) IU/L Alkaline Phosphatase (38-126) U/L Total Creatine Kinase 92 (55-170) U/L CK-MB (CK-2) TNP (<2.37) ng/mL CK-MB (CK-2) Rel Index TNP (1.5-5.0) % Troponin I < 0.012 (0.01-0.034) ng/mL NT-Pro-B Natriuret Pep 61 (<125) pg/mL Total Protein (6.3-8.2) g/dL Albumin (3.5-5.0) g/dL Globulin (1.7-4.1) g/dL Albumin/Globulin Ratio (1.0-2.8) Lipase (23-300) U/L SARS-CoV-2 (PCR) Negative (Negative) MDM Narrative Medical decision making narrative: 47-year-old male with history of hypertension and possible prior coronary artery disease presents with a chief complaint of retrosternal chest pain in the setting of elevated blood pressure prior to his arrival. EKGs are nonischemic, heart score is 3 and troponins by 3 hours remained negative. Multiple diagnoses considered including hypertensive emergency, cardiac ischemia, musculoskeletal pain and others. Chest x-ray is unremarkable. Symptoms completely resolved after nitro, taking his blood pressure from the 1 90s down to the 130s. He remained asymptomatic for the duration of his visit. He was ambulatory with no complaint. He denies recent exertional symptoms or exercise intolerance. Patient encouraged to continue taking his medications as previously directed, follow closely with his doctors and returned to the emergency department for worsening or persistent pain, shortness of breath, exercise intolerance, vomiting, unexplained diaphoresis or other concerning symptoms. Discharge Plan Departure Patient Disposition: Home Clinical Impression: Chest pain, HTN (hypertension) Instructions: DI for Chest Pain Activity Restrictions/Additional Instructions: *You have been diagnosed with [chest pain. As we discussed your history, physical exam, EKGs and labs are very reassuring. At the end of the day it would seem that your symptoms very well could have been related to elevated blood pressure.] *What to do: *Please continue to take your regular medications as directed. *Please follow up with your primary care provider in 2-3 days, call for an ap pointment. Let them know you were seen in the Emergency Department and that we ask that you be seen in follow up. We will electronically transmit a record of today's note if your PCP is in our system *Return to Emergency Department if you should have any new, worsening or concerning symptoms, such as [fever greater than 101 F, shaking chills, worsening pain, persistent vomiting or other bothersome symptoms] Prescriptions: No Action sildenafil (antihypertensive) 40 mg PO PRN PRN (Reason: Erectile Dysfunction) nitroglycerin 0.4 mg tablet, sublingual 0.4 mg SL Q5-15M PRN (Reason: Chest Pain) cyclobenzaprine 10 mg tablet 10 mg PO BEDTIME Qty: 10 0RF prednisone 20 mg tablet 20 mg PO DAILY Qty: 14 0RF Rx Instructions: Take 2 pills for 5 days then 1 pill for 3 days then 1/2 pill for 2 days metoprolol tartrate 50 MG tablet 50 mg PO BID Qty: 0 aspirin 325 mg Tablet 325 mg PO DAILY Referrals: Sharon Cantu ARNP [Primary Care Provider] -
[2022-07-08 23:36] LABS: Add Manual Diff / Slide Review NO; Basophils Absolute Auto 0 /uL (0-100); Basophils Percent Auto 0.6 % (0-2); Eosinophils Absolute Auto 300 /uL (0-450); Eosinophils Percent Auto 3.7 % (2-4); Hematocrit 40.1 % (41-53); Hemoglobin 13.7 g/dL (13.5-17.5); Lymphocytes Absolute Auto 2100 /uL (1100-4500); Lymphocytes Percent Auto 27.2 % (25-40); Mean Corpuscular HGB Conc 34.2 % (30-36); Mean Corpuscular Hemoglobin 28.8 PG (26-34); Mean Corpuscular Volume 84.2 fL (80-100); Monocytes Absolute Auto 500 /uL (0-900); Monocytes Percent Auto 6.2 % (3-14); Neutrophils Absolute Auto 4800 /uL (1500-7000); Neutrophils Percent Auto 62.3 % (50-75); Platelet Count 158 X10^3/uL (150-400); Red Blood Cell Count 4.76 X10^6/uL (4.5-5.9); Red Cell Distribution Width 13.9 % (11.6-14.8); White Blood Cell Count 7.7 X10^3/uL (4.5-11.0)
[2022-07-08 23:38] VITALS: BP 145/78
[2022-07-08 23:40] VITALS: BP 145/78; PULSE 98
[2022-07-08] MEDS: SODIUM CHLORIDE 0.9% 1,000 ML 150 ML IV (23:42)
[2022-07-08 23:44] LABS: INR 1.1 (0.9-1.3); Prothrombin Time 12.4 SECONDS (10.1-12.7)
[2022-07-08 23:45] VITALS: BP 138/74; PULSE 74; PULSE 99; RESP 14; RESP 16; O2SAT 96; O2SAT 98
[2022-07-08 23:46] LABS: PTT Partial Thromboplastin Tim 24 SECONDS (26-36)
[2022-07-08 23:53] LABS: Alanine Aminotransferase 34 IU/L (<50); Albumin 4.3 g/dL (3.5-5.0); Albumin Globulin Ratio 1.6 (1.0-2.8); Alkaline Phosphatase 72 U/L (38-126); Aspartate Aminotransferase 30 IU/L (17-59); BUN Creatinine Ratio 19.4 (6-22); Bilirubin Total 0.6 mg/dL (0.2-1.3); Blood Urea Nitrogen 14 mg/dL (9-20); Calcium 9.2 mg/dL (8.4-10.2); Carbon Dioxide 29 mmol/L (22-32); Chloride 100 mmol/L (98-107); Creatine Kinase 106 U/L (55-170); Estimated Glomerular Filt Rate > 60 mL/min (>60); Globulin 2.7 g/dL (1.7-4.1); Glucose 166 mg/dL (70-100); Lipase 176 U/L (23-300); Potassium 4.1 mmol/L (3.4-5.1); Sodium 139 mmol/L (137-145)
[2022-07-09] VITALS: PULSE 89; RESP 16; O2SAT 94
[2022-07-09 00:02] LABS: NT-proBNP (BNP-Adult 18+) 61 pg/mL (<125)
[2022-07-09 00:04] LABS: Troponin I < 0.012 ng/mL (0.01-0.034)
[2022-07-09 00:06] LABS: COVID19 -Nasal RAPID Negative (Negative)
[2022-07-09 00:08] LABS: CKMB % Relative Index 0.8 % (1.5-5.0); Creatine Kinase MB 0.86 ng/mL (<2.37); HEMOLYSIS 30 (0-50)
[2022-07-09 00:30] VITALS: PULSE 85; RESP 17; O2SAT 94
--- NOTE | 2022-07-09 00:55 | PC.NURSE ---
Patient declines continuous rejoiner, BP cuff and O2 probe, asking for food. Given sandwich. aware
[2022-07-09 01:38] VITALS: BP 145/64; PULSE 86; RESP 13; O2SAT 95
[2022-07-09 02:00] VITALS: PULSE 89; RESP 38
[2022-07-09 02:30] VITALS: PULSE 76; RESP 16
[2022-07-09 02:36] LABS: Creatine Kinase 92 U/L (55-170)
[2022-07-09 02:49] LABS: Troponin I < 0.012 ng/mL (0.01-0.034)
[2022-07-09 03:02] VITALS: BP 159/75; PULSE 73; RESP 22; O2SAT 97
== END 2022-07-09 03:02 | disposition home or self-care (01) ==
PROVIDERS: Emergency Provider Emergency Medicine; PCP Nurse Practitioner
DX: R07.9 Chest pain, unspecified (principal); I10 Essential (primary) hypertension; Z79.899 Other long term (current) drug therapy; Z20.822 Contact with and (suspected) exposure to COVID-19
CPT/HCPCS: 36415; 71045; 80053; 82550; 82553; 83690; 83880; 84484; 85025; 85610; 85730; 87635; 93005; 96360; 96361; 99284; C9803

== ENCOUNTER 2024-08-03 19:07 | Emergency (ER) | payer OTHER, SELFPAY ==
[2024-08-03 19:10] VITALS: BP 163/87; PULSE 78; RESP 18; TEMP 37.1; O2SAT 100; BMI 38.9
--- NOTE | 2024-08-03 22:18 | ED.GENADULT ---
HPI - General Adult General Chief complaint: Dental/Oral Stated complaint: tooth px, broken tooth Time Seen by Provider: 08/03/24 21:46 Source: patient Mode of arrival: Ambulatory History of Present Illness HPI narrative: Patient was a 49-year-old male. Has a history of chronic pain and sees a painting technician. Is on Percocet every 6 hours at baseline. He states that he recently broke a tooth in the left lower jaw. Since that time has had quite a bit of discomfort. States he feels like the muscles in the left side of his face or cramping. Also has cramping to the muscles in his left shoulder. He is followed by the [facility] dental/oral maxillofacial. He was an appointment with them after the new year. No problems breathing. Has taken his normal pain medication. Is still here with discomfort Related Data Home Medications Medication Instructions Recorded Confirmed metoprolol tartrate 50 mg tablet 50 mg PO BID ##0 03/21/17 05/03/19 aspirin 325 mg tablet 325 mg PO DAILY 04/22/18 05/03/19 nitroglycerin 0.4 mg sublingual 0.4 mg sublingual Q5-15M PRN Chest 05/23/18 05/03/19 tablet Pain sildenafil (antihypertensive) 40 mg PO PRN PRN Erectile 05/23/18 05/03/19 Dysfunction Previous Rx's Medication Instructions Recorded cyclobenzaprine 10 mg tablet 10 mg PO BEDTIME #10 tabs 05/03/19 prednisone 20 mg tablet 20 mg PO DAILY #14 tabs 05/03/19 Allergies Allergy/AdvReac Type Severity Reaction Status Date / Time Sulfa (Sulfonamide Allergy Intermediate RESPIRATORY Verified 07/08/22 23:21 Antibiotics) PROBLEMS Review of Systems Review of Systems ROS Unobtainable: All systems reviewed & are unremarkable except as noted in HPI and below Patient History Medical History Obstructive sleep apnea Coronary artery disease Hypertension Kidney stones Social History Smoking Status: Current every day smoker alcohol intake: current (occasionally) Smoking Status: Current every day smoker tobacco type: cigarettes alcohol intake frequency: a few times a month Exam Initial Vital Signs Initial Vital Signs: Vital Signs Temperature 98.7 F 08/03/24 19:10 Pulse Rate 78 08/03/24 19:10 Respiratory Rate 18 08/03/24 19:10 Blood Pressure 163/87 H 08/03/24 19:10 Pulse Oximetry 100 08/03/24 19:10 Oxygen Delivery Method Room Air 08/03/24 19:10 Const General: No ill appearing HENMT Face and sinus: normal facial exam Mouth: lip normal, tongue normal and No drooling HENMT Other: Left lower premolar cracked with a portion of missing. Neck Neck: normal visual inspection Skin General: no rashes or lesions noted Neuro General: patient alert and patient awake Extrem Other: Discomfort with palpation over the left rhomboids Procedures Nerve Block Nerve Block 1: Time out performed: Yes Local Anesthetic: lidocaine 1% Amount of anesthesia used (mL): 3 Side: left Nerve Blocks: other (Dental) Intraoral Nerve Block: inferior alveolar Procedure Successful: Yes Patient Tolerated Procedure: Well and No complications Course Orders Ordered: Discontinued Medications Ketorolac Tromethamine (Ketorolac 30 Mg/Ml Vial) 30 mg IM NOW ONE Stop: 08/03/24 22:19 Last Admin: 08/03/24 22:29 Dose: 30 mg Documented By: IWONA Lidocaine HCl (Lidocaine 1% 20 Ml) 20 ml INJ INTRA-OP ONE Stop: 08/03/24 22:19 Last Admin: 08/03/24 22:29 Dose: 20 ml Documented By: IWONA Vital Signs Vital signs: Vital Signs - 8 hr 08/03/24 23:11 Pulse Rate 76 Respiratory Rate 20 Blood Pressure 167/86 H Pulse Oximetry 97 Oxygen Delivery Method Room Air Medical Decision Making [facility] Narrative Medical decision making narrative: Patient seems to have difficulty tolerating the discomfort. His left shoulder discomfort and the discomfort he is having on the left side of his had is most likely muscular in origin. We discussed conservative measures to include heat and ice and massage and Tylenol and ibuprofen. He was currently on antibiotics. He does have a broken left lower premolar. Attempted a dental block which potentially was partially successful. I did put a temporary filling in the tooth however the patient was told that this is certainly temporary and may come out on its own. He was going to need definitive treatment with a dentist. No indication to change antibiotics that he was currently on. No indication for radiologic studies for now. He was given return precautions and follow-up instructions. He expressed understanding and agreement with plan. Discharge Plan Departure Patient Disposition: Home Clinical Impression: Pain, dental Instructions: DI for Dental Pain Activity Restrictions/Additional Instructions: Continue to take all of your medications as directed. You can contact your painting technician to change your pain regimen if needed. You can contact [facility] dental to see if they can get you in sooner. You were going to need to see a dentist for definitive treatment. Prescriptions: No Action sildenafil (antihypertensive) 40 mg PO PRN PRN (Reason: Erectile Dysfunction) nitroglycerin 0.4 mg tablet, sublingual 0.4 mg SL Q5-15M PRN (Reason: Chest Pain) cyclobenzaprine 10 mg tablet 10 mg PO BEDTIME Qty: 10 0RF prednisone 20 mg tablet 20 mg PO DAILY Qty: 14 0RF Rx Instructions: Take 2 pills for 5 days then 1 pill for 3 days then 1/2 pill for 2 days metoprolol tartrate 50 MG tablet 50 mg PO BID Qty: 0 aspirin 325 mg Tablet 325 mg PO DAILY Referrals: Sharon Cantu ARNP [Primary Care Provider] - Stand Alone Forms: Patient Portal/API/Survey
[2024-08-03] MEDS: KETOROLAC 30 MG/ML VIAL IM (22:29)
[2024-08-03] MEDS: LIDOCAINE 1% 20 ML INJ (22:29)
[2024-08-03 23:11] VITALS: BP 167/86; PULSE 76; RESP 20; O2SAT 97
== END 2024-08-03 23:22 | disposition home or self-care (01) ==
PROVIDERS: Emergency Provider Emergency Medicine; PCP Nurse Practitioner
DX: K08.89 Other specified disorders of teeth and supporting structures (principal)
CPT/HCPCS: 64450; 96372; 99283; 99284; J1885